=== PATIENT | male | born 1955 | race Caucasian/White ===

== ENCOUNTER → 2016-04-20 | Outpatient (REF) | payer BC ==
[2016-04-20 11:13] LABS: BASO % 0.7 % (0.0-1.0); EOS # 0.2 K/mm3 (0.0-0.50); EOS % 3.4 % (0.0-3.0); LARGE UNSTAINED CELL # 0.2 K/mm3 (0.0-0.4); LARGE UNSTAINED CELL % 3.2 % (0.0-4.0); LYMPH # 1.7 K/mm3 (1.5-4.5); LYMPH % 32.2 % (24.0-44.0); MEAN CORPUSCULAR HEMOGLOBIN 30.9 pg (27.0-33.0); MEAN CORPUSCULAR HGB CONC 34.1 g/dl (32.0-36.5); MEAN CORPUSCULAR VOLUME 90.5 fl (80.0-96.0); MONO # 0.4 K/mm3 (0.0-0.8); NEUTROPHILS # 2.8 K/mm3 (1.8-7.7); NEUTROPHILS % 53.5 % (36.0-66.0); PLATELET COUNT, AUTOMATED 198 k/mm3 (150-450); RED CELL DISTRIBUTION WIDTH 12.4 % (11.5-14.5); WHITE BLOOD COUNT 5.2 K/mm3 (4.0-10.0)
[2016-04-20 11:52] LABS: ALBUMIN/GLOBULIN RATIO 1.18 (1.00-1.93); ALKALINE PHOSPHATASE 58 U/L (45-117); ALT/SGPT 50 U/L (12-78); ANION GAP 10 MEQ/L (8-16); AST/SGOT 25 U/L (15-37); BILIRUBIN,TOTAL 0.5 MG/DL (0.2-1.0); BLOOD UREA NITROGEN 12 MG/DL (7-18); CALCIUM LEVEL 8.7 MG/DL (8.5-10.1); CARBON DIOXIDE LEVEL 30 MEQ/L (21-32); CHLORIDE LEVEL 102 MEQ/L (98-107); CHOLESTEROL LEVEL 158 MG/DL (<200); CREATININE FOR GFR 0.76 MG/DL (0.70-1.30); GLOMERULAR FILTRATION RATE > 60.0 (>56); GLUCOSE, FASTING 109 MG/DL (70-105); SODIUM LEVEL 142 MEQ/L (136-145); TOTAL PROTEIN 7.4 GM/DL (6.4-8.2); TRIGLYCERIDES LEVEL 151 MG/DL (<150)
== END ==
LOC: M SFHCCLAY 08:09
PROVIDERS: ATTEND Family Medicine
DX: D50.9 Iron deficiency anemia, unspecified (principal); I10 Essential (primary) hypertension; E11.9 Type 2 diabetes mellitus without complications; E78.5 Hyperlipidemia, unspecified; Z12.5 Encounter for screening for malignant neoplasm of prostate
CPT/HCPCS: 80053; 80061; 83036; 83540; 85025; G0103

== ENCOUNTER → 2016-08-07 | Outpatient (REF) | payer BC | LOC: M SMT 13:07 | PROVIDERS: ATTEND Urology | DX: Z85.51 Personal history of malignant neoplasm of bladder (principal) ==

== ENCOUNTER → 2016-10-19 | Outpatient (REF) | payer BC ==
[2016-10-19 11:19] LABS: BASO % 0.4 % (0.0-1.0); EOS # 0.2 K/mm3 (0.0-0.50); EOS % 3.1 % (0.0-3.0); LARGE UNSTAINED CELL # 0.2 K/mm3 (0.0-0.4); LARGE UNSTAINED CELL % 2.8 % (0.0-4.0); LYMPH # 1.9 K/mm3 (1.5-4.5); LYMPH % 31.9 % (24.0-44.0); MEAN CORPUSCULAR HEMOGLOBIN 32.1 pg (27.0-33.0); MEAN CORPUSCULAR HGB CONC 34.5 g/dl (32.0-36.5); MEAN CORPUSCULAR VOLUME 93.2 fl (80.0-96.0); MONO # 0.4 K/mm3 (0.0-0.8); MONO % 7.6 % (0.0-5.0); NEUTROPHILS % 54.2 % (36.0-66.0); PLATELET COUNT, AUTOMATED 184 k/mm3 (150-450); RED CELL DISTRIBUTION WIDTH 12.9 % (11.5-14.5); WHITE BLOOD COUNT 5.4 K/mm3 (4.0-10.0)
[2016-10-19 11:22] LABS: ALBUMIN 3.9 GM/DL (3.2-5.2); ALBUMIN/GLOBULIN RATIO 1.34 (1.00-1.93); ALKALINE PHOSPHATASE 59 U/L (45-117); ALT/SGPT 60 U/L (12-78); ANION GAP 8 MEQ/L (8-16); AST/SGOT 27 U/L (15-37); BILIRUBIN,TOTAL 0.5 MG/DL (0.2-1.0); BLOOD UREA NITROGEN 12 MG/DL (7-18); CALCIUM LEVEL 8.6 MG/DL (8.5-10.1); CARBON DIOXIDE LEVEL 29 MEQ/L (21-32); CHLORIDE LEVEL 104 MEQ/L (98-107); CREATININE FOR GFR 0.63 MG/DL (0.70-1.30); GLOMERULAR FILTRATION RATE > 60.0 (>56); GLUCOSE, FASTING 120 MG/DL (70-105); POTASSIUM SERUM 3.9 MEQ/L (3.5-5.1); SODIUM LEVEL 141 MEQ/L (136-145); TOTAL PROTEIN 6.8 GM/DL (6.4-8.2)
== END ==
LOC: M SFHCCLAY 07:43
PROVIDERS: ATTEND Family Medicine
DX: D50.9 Iron deficiency anemia, unspecified (principal); E11.9 Type 2 diabetes mellitus without complications

== ENCOUNTER → 2017-04-22 | Outpatient (REF) | payer BC ==
[2017-04-22 11:59] LABS: BASO % 0.6 % (0.0-1.0); EOS # 0.2 10^3/uL (0.0-0.50); HEMATOCRIT 41.2 % (42.0-52.0); HEMOGLOBIN 13.7 g/dl (14.0-18.0); IMMATURE GRANULOCYTE % 0.4 % (0-0); LYMPH % 27.6 % (24.0-44.0); MEAN CORPUSCULAR HEMOGLOBIN 30.4 pg (27.0-33.0); MEAN CORPUSCULAR HGB CONC 33.3 g/dl (32.0-36.5); MEAN CORPUSCULAR VOLUME 91.6 fl (80.0-96.0); MONO # 0.7 10^3/uL (0.0-0.8); MONO % 9.2 % (0.0-5.0); NEUTROPHILS # 4.2 10^3/uL (1.8-7.7); NEUTROPHILS % 59.2 % (36.0-66.0); PLATELET COUNT, AUTOMATED 222 10^3/uL (150-450); RED CELL DISTRIBUTION WIDTH 12.3 % (11.5-14.5); WHITE BLOOD COUNT 7.1 10^3/uL (4.0-10.0)
[2017-04-22 12:04] LABS: ALBUMIN 3.9 GM/DL (3.2-5.2); ALBUMIN/GLOBULIN RATIO 1.05 (1.00-1.93); ALKALINE PHOSPHATASE 60 U/L (45-117); ALT/SGPT 57 U/L (12-78); ANION GAP 7 MEQ/L (8-16); AST/SGOT 30 U/L (7-37); BILIRUBIN,TOTAL 0.6 MG/DL (0.2-1.0); BLOOD UREA NITROGEN 12 MG/DL (7-18); CALCIUM LEVEL 8.9 MG/DL (8.5-10.1); CARBON DIOXIDE LEVEL 33 MEQ/L (21-32); CHLORIDE LEVEL 102 MEQ/L (98-107); CHOLESTEROL LEVEL 158 MG/DL (<200); CHOLESTEROL RISK RATIO 3.761 (<5); CREATININE FOR GFR 0.79 MG/DL (0.70-1.30); GLOMERULAR FILTRATION RATE > 60.0 (>56); GLUCOSE, FASTING 110 MG/DL (70-100); HDL CHOLESTEROL 42 MG/DL (>40); IRON (FE) 89 UG/DL (65-175); LDL CHOLESTEROL 75.8 MG/DL (<100); NON-HDL-C 116 MG/DL; POTASSIUM SERUM 3.9 MEQ/L (3.5-5.1); SODIUM LEVEL 142 MEQ/L (136-145); TOTAL PROTEIN 7.6 GM/DL (6.4-8.2); TRIGLYCERIDES LEVEL 201 MG/DL (<150)
[2017-04-22 12:06] LABS: PSA SCREENING 0.41 NG/ML (< 4.0)
[2017-04-22 13:00] LABS: ESTIMATED AVERAGE GLUCOSE 137 MG/DL (60-110); HEMOGLOBIN A1c 6.4 %
== END ==
LOC: M SFHCCLAY 07:57
DX: E11.9 Type 2 diabetes mellitus without complications (principal); E78.5 Hyperlipidemia, unspecified; D50.9 Iron deficiency anemia, unspecified

== ENCOUNTER 2017-06-13 06:40 | Day surgery (SDC) | payer BC ==
[2017-06-13] MEDS ORDERED: LIDOCAINE 2% INJ 100 MG/5 ML SDV (FOR ANES.) As Ordered (08:16)
[2017-06-13] MEDS ORDERED: PROPOFOL 200 MG/20 ML VIAL As Ordered (08:16)
== END 2017-06-13 08:56 | disposition home or self-care (01) ==
LOC: M OPP 06:40
DX: Z12.11 Encounter for screening for malignant neoplasm of colon (principal); K57.30 Diverticulosis of large intestine without perforation or abscess without bleeding; Z86.010 Personal history of colon polyps; Z80.0 Family history of malignant neoplasm of digestive organs; E11.9 Type 2 diabetes mellitus without complications; I10 Essential (primary) hypertension; E78.5 Hyperlipidemia, unspecified; D64.9 Anemia, unspecified; G47.33 Obstructive sleep apnea (adult) (pediatric); M12.9 Arthropathy, unspecified; K21.9 Gastro-esophageal reflux disease without esophagitis; Z79.899 Other long term (current) drug therapy; Z87.891 Personal history of nicotine dependence; Z87.442 Personal history of urinary calculi
CPT/HCPCS: 45378

== ENCOUNTER → 2017-10-21 | Outpatient (REF) | payer BC ==
[2017-10-21 11:56] LABS: BASO % 0.5 % (0.0-1.0); EOS # 0.2 10^3/uL (0.0-0.50); EOS % 3.2 % (0.0-3.0); HEMATOCRIT 39.4 % (42.0-52.0); HEMOGLOBIN 13.4 g/dl (13.5-17.5); IMMATURE GRANULOCYTE % 0.2 % (0-3.0); LYMPH # 1.9 10^3/uL (1.5-4.5); LYMPH % 32.4 % (24.0-44.0); MEAN CORPUSCULAR HEMOGLOBIN 30.7 pg (27.0-33.0); MEAN CORPUSCULAR VOLUME 90.4 fl (80.0-96.0); MONO # 0.6 10^3/uL (0.0-0.8); MONO % 9.4 % (0.0-5.0); NEUTROPHILS # 3.2 10^3/uL (1.8-7.7); NEUTROPHILS % 54.3 % (36.0-66.0); PLATELET COUNT, AUTOMATED 196 10^3/uL (150-450); RED BLOOD COUNT 4.36 10^6/uL (4.30-6.10); RED CELL DISTRIBUTION WIDTH 12.3 % (11.5-14.5); WHITE BLOOD COUNT 5.9 10^3/uL (4.0-10.0)
[2017-10-21 12:24] LABS: ALBUMIN 3.7 GM/DL (3.2-5.2); ALBUMIN/GLOBULIN RATIO 1.06 (1.00-1.93); ALKALINE PHOSPHATASE 56 U/L (45-117); ALT/SGPT 61 U/L (12-78); ANION GAP 7 MEQ/L (8-16); AST/SGOT 38 U/L (7-37); BILIRUBIN,TOTAL 0.5 MG/DL (0.2-1.0); BLOOD UREA NITROGEN 9 MG/DL (7-18); CALCIUM LEVEL 8.8 MG/DL (8.8-10.2); CARBON DIOXIDE LEVEL 32 MEQ/L (21-32); CHLORIDE LEVEL 103 MEQ/L (98-107); CREATININE FOR GFR 0.72 MG/DL (0.70-1.30); GLOMERULAR FILTRATION RATE > 60.0 (>49); GLUCOSE, FASTING 109 MG/DL (70-100); IRON (FE) 83 UG/DL (65-175); POTASSIUM SERUM 3.8 MEQ/L (3.5-5.1); SODIUM LEVEL 142 MEQ/L (136-145); TOTAL PROTEIN 7.2 GM/DL (6.4-8.2)
[2017-10-21 14:07] LABS: ESTIMATED AVERAGE GLUCOSE 126 MG/DL (60-110)
== END ==
LOC: M SFHCCLAY 08:05
DX: E11.40 Type 2 diabetes mellitus with diabetic neuropathy, unspecified (principal); D50.9 Iron deficiency anemia, unspecified
CPT/HCPCS: 83540

== ENCOUNTER → 2018-02-24 | Outpatient (REF) | payer BC | LOC: M SMT 17:16 | DX: C67.9 Malignant neoplasm of bladder, unspecified (principal) | CPT/HCPCS: 88108 ==

== ENCOUNTER → 2018-04-24 | Outpatient (REF) | payer BC ==
[~2018-04-24] MED LIST: AMLO5TAB6 PO; BISO10TA6 PO; CO Q100C10 PO; FERR1TAB8 PO; GLUCPOW24 PO; METF10004 PO; MULT1TAB10 PO; OMEP20CA3 PO; SIMV20TA2 PO; VALS320T3 PO
[2018-04-24 11:55] LABS: ALBUMIN 3.9 GM/DL (3.2-5.2); ALT/SGPT 53 U/L (12-78); BILIRUBIN,TOTAL 0.5 MG/DL (0.2-1.0); BLOOD UREA NITROGEN 12 MG/DL (7-18); CALCIUM LEVEL 8.9 MG/DL (8.8-10.2); CARBON DIOXIDE LEVEL 30 MEQ/L (21-32); CHLORIDE LEVEL 101 MEQ/L (98-107); CHOLESTEROL LEVEL 149 MG/DL (<200); CHOLESTEROL RISK RATIO 3.634 (<5); CREATININE FOR GFR 0.67 MG/DL (0.70-1.30); GLOMERULAR FILTRATION RATE > 60.0 (>49); GLUCOSE, FASTING 115 MG/DL (70-100); HDL CHOLESTEROL 41 MG/DL (>40); LDL CHOLESTEROL 76 MG/DL (<100); NON-HDL-C 108 MG/DL; SODIUM LEVEL 139 MEQ/L (136-145); TRIGLYCERIDES LEVEL 158 MG/DL (<150)
[2018-04-24 12:05] LABS: HEMOGLOBIN A1c 6.6 %
[2018-04-24 12:23] LABS: MALB URINE SIEMENS 20.5 MG/L; MAU/CREAT RATIO 16.9 MCG/MG (0.0-30.0)
== END ==
LOC: M SFHCCLAY 07:53
PROVIDERS: ATTEND Family Medicine
DX: E11.40 Type 2 diabetes mellitus with diabetic neuropathy, unspecified (principal)

== ENCOUNTER → 2018-08-29 | Outpatient (REF) | payer BC | LOC: M SMT 17:07 | PROVIDERS: ATTEND Urology | DX: C67.9 Malignant neoplasm of bladder, unspecified (principal) ==

== ENCOUNTER → 2018-10-24 | Outpatient (REF) | payer BC ==
[~2018-10-24] MED LIST changes: -BISO10TA6 PO; +BISO10TA7 PO; -OMEP20CA3 PO; +OMEP20CA4 PO
[2018-10-24 13:14] LABS: BASO % 0.7 % (0.0-1.0); EOS # 0.2 10^3/uL (0.0-0.50); EOS % 4.2 % (0.0-3.0); HEMATOCRIT 39.6 % (42.0-52.0); HEMOGLOBIN 13.1 g/dl (13.5-17.5); LYMPH # 1.8 10^3/uL (1.5-4.5); LYMPH % 32.4 % (24.0-44.0); MEAN CORPUSCULAR HEMOGLOBIN 31.3 pg (27.0-33.0); MEAN CORPUSCULAR HGB CONC 33.1 g/dl (32.0-36.5); MEAN CORPUSCULAR VOLUME 94.5 fl (80.0-96.0); MONO # 0.6 10^3/uL (0.0-0.8); MONO % 10.5 % (0.0-5.0); NEUTROPHILS # 2.9 10^3/uL (1.8-7.7); NEUTROPHILS % 51.8 % (36.0-66.0); PLATELET COUNT, AUTOMATED 181 10^3/uL (150-450); RED BLOOD COUNT 4.19 10^6/uL (4.30-6.10); WHITE BLOOD COUNT 5.5 10^3/uL (4.0-10.0)
[2018-10-24 13:40] LABS: HEMOGLOBIN A1c 6.5 %
[2018-10-24 14:26] LABS: ALBUMIN 3.6 GM/DL (3.2-5.2); ALT/SGPT 66 U/L (12-78); BILIRUBIN,TOTAL 0.3 MG/DL (0.2-1.0); BLOOD UREA NITROGEN 11 MG/DL (7-18); CALCIUM LEVEL 8.8 MG/DL (8.8-10.2); CARBON DIOXIDE LEVEL 32 MEQ/L (21-32); CHLORIDE LEVEL 104 MEQ/L (98-107); GLOMERULAR FILTRATION RATE > 60.0 (>49); GLUCOSE, FASTING 124 MG/DL (70-100); IRON (FE) 64 UG/DL (65-175); POTASSIUM SERUM 4.1 MEQ/L (3.5-5.1); SODIUM LEVEL 141 MEQ/L (136-145); TOTAL PROTEIN 6.9 GM/DL (6.4-8.2)
== END ==
LOC: M SFHCCLAY 07:25
PROVIDERS: ATTEND Family Medicine
DX: E11.40 Type 2 diabetes mellitus with diabetic neuropathy, unspecified (principal); D50.9 Iron deficiency anemia, unspecified

== ENCOUNTER → 2019-03-13 | Outpatient (REF) | payer BC ==
[~2019-03-13] MED LIST changes: +BISO10TA10 PO; -BISO10TA7 PO; +OMEP-172 PO; -OMEP20CA4 PO; -SIMV20TA2 PO; +SIMV20TA22 PO
== END ==
LOC: M SMT 18:57
PROVIDERS: ATTEND Urology
DX: C67.9 Malignant neoplasm of bladder, unspecified (principal)

== ENCOUNTER → 2019-03-13 | Outpatient (REF) | payer BC | LOC: M SMT 17:07 | PROVIDERS: ATTEND Urology | DX: C67.9 Malignant neoplasm of bladder, unspecified (principal) ==

== ENCOUNTER → 2019-04-28 | Outpatient (REF) | payer BC ==
[~2019-04-28] MED LIST changes: -BISO10TA10 PO; +BISO10TA14 PO; -OMEP-172 PO; +OMEP1CAP73 PO
[2019-04-28 13:17] LABS: BASO % 0.5 % (0.0-1.0); EOS # 0.2 10^3/uL (0.0-0.5); EOS % 2.9 % (0.0-3.0); HEMATOCRIT 42.7 % (42.0-52.0); HEMOGLOBIN 14.1 g/dl (13.5-17.5); LYMPH # 2.5 10^3/uL (1.5-5.0); LYMPH % 33.6 % (24.0-44.0); MEAN CORPUSCULAR HEMOGLOBIN 31.3 pg (27.0-33.0); MEAN CORPUSCULAR VOLUME 94.9 fl (80.0-96.0); MONO # 0.7 10^3/uL (0.0-0.8); MONO % 9.4 % (0.0-5.0); NEUTROPHILS % 53.2 % (36.0-66.0); PLATELET COUNT, AUTOMATED 205 10^3/uL (150-450); WHITE BLOOD COUNT 7.5 10^3/uL (4.0-10.0)
[2019-04-28 13:31] LABS: ALBUMIN 3.9 GM/DL (3.2-5.2); ALT/SGPT 52 U/L (12-78); BILIRUBIN,TOTAL 0.4 MG/DL (0.2-1.0); BLOOD UREA NITROGEN 10 MG/DL (7-18); CALCIUM LEVEL 9.3 MG/DL (8.8-10.2); CARBON DIOXIDE LEVEL 33 MEQ/L (21-32); CHLORIDE LEVEL 101 MEQ/L (98-107); CHOLESTEROL LEVEL 172 MG/DL (<200); GLOMERULAR FILTRATION RATE > 60.0 (>49); GLUCOSE, FASTING 113 MG/DL (70-100); HDL CHOLESTEROL 40 MG/DL (>40); IRON (FE) 84 UG/DL (65-175); LDL CHOLESTEROL 82 MG/DL (<100); NON-HDL-C 132 MG/DL; POTASSIUM SERUM 4.3 MEQ/L (3.5-5.1); SODIUM LEVEL 139 MEQ/L (136-145); TOTAL PROTEIN 7.2 GM/DL (6.4-8.2); TRIGLYCERIDES LEVEL 250 MG/DL (<150)
[2019-04-28 13:49] LABS: HEMOGLOBIN A1c 6.3 %
== END ==
LOC: M SFHCCLAY 07:46
PROVIDERS: ATTEND Family Medicine
DX: E11.40 Type 2 diabetes mellitus with diabetic neuropathy, unspecified (principal); D50.9 Iron deficiency anemia, unspecified

== ENCOUNTER → 2019-09-14 | Outpatient (REF) | payer BC ==
[~2019-09-14] MED LIST changes: +AMLO1TAB24 PO; -AMLO5TAB6 PO
== END ==
LOC: M SMT 17:01
PROVIDERS: ATTEND Urology
DX: C67.9 Malignant neoplasm of bladder, unspecified (principal)

== ENCOUNTER → 2020-01-08 | Outpatient (REF) | payer BC ==
[2020-01-08 11:46] LABS: HEMOGLOBIN A1c 6.3 %
[2020-01-08 12:10] LABS: ALBUMIN 3.7 GM/DL (3.2-5.2); ALT/SGPT 57 U/L (12-78); BILIRUBIN,TOTAL 0.4 MG/DL (0.2-1.0); BLOOD UREA NITROGEN 11 MG/DL (7-18); CALCIUM LEVEL 9.5 MG/DL (8.8-10.2); CARBON DIOXIDE LEVEL 33 MEQ/L (21-32); CHLORIDE LEVEL 102 MEQ/L (98-107); CREATININE FOR GFR 0.85 MG/DL (0.70-1.30); GLOMERULAR FILTRATION RATE > 60.0 (>49); GLUCOSE, FASTING 148 MG/DL (70-100); POTASSIUM SERUM 4.3 MEQ/L (3.5-5.1); SODIUM LEVEL 139 MEQ/L (136-145); TOTAL PROTEIN 7.4 GM/DL (6.4-8.2)
== END ==
LOC: M SFHCCLAY 07:59
PROVIDERS: ATTEND Family Medicine
DX: E11.40 Type 2 diabetes mellitus with diabetic neuropathy, unspecified (principal); Z12.5 Encounter for screening for malignant neoplasm of prostate; Z79.84 Long term (current) use of oral hypoglycemic drugs
CPT/HCPCS: 80053; 83036; G0103

== ENCOUNTER → 2020-04-18 | Outpatient (REF) | payer BC | LOC: M SMT 17:09 | PROVIDERS: ATTEND Urology | DX: C67.9 Malignant neoplasm of bladder, unspecified (principal) ==

== ENCOUNTER → 2020-07-07 | Outpatient (REF) | payer BC ==
[2020-07-07 11:38] LABS: BASO % 0.6 % (0.0-1.0); EOS # 0.2 10^3/uL (0.0-0.5); EOS % 3.3 % (0.0-3.0); HEMATOCRIT 39.5 % (42.0-52.0); LYMPH # 2.3 10^3/uL (1.5-5.0); LYMPH % 32.8 % (24.0-44.0); MEAN CORPUSCULAR HEMOGLOBIN 30.8 pg (27.0-33.0); MEAN CORPUSCULAR HGB CONC 32.9 g/dl (32.0-36.5); MEAN CORPUSCULAR VOLUME 93.6 fl (80.0-96.0); MONO # 0.8 10^3/uL (0.0-0.8); MONO % 10.9 % (2.0-8.0); NEUTROPHILS # 3.6 10^3/uL (1.5-8.5); PLATELET COUNT, AUTOMATED 194 10^3/uL (150-450); RED BLOOD COUNT 4.22 10^6/uL (4.30-6.10)
[2020-07-07 12:02] LABS: HEMOGLOBIN A1c 6.6 %
[2020-07-07 12:15] LABS: ALBUMIN 3.8 GM/DL (3.2-5.2); ALT/SGPT 61 U/L (12-78); BILIRUBIN,TOTAL 0.4 MG/DL (0.2-1.0); BLOOD UREA NITROGEN 17 MG/DL (7-18); CALCIUM LEVEL 9.3 MG/DL (8.8-10.2); CARBON DIOXIDE LEVEL 34 MEQ/L (21-32); CHLORIDE LEVEL 103 MEQ/L (98-107); CHOLESTEROL LEVEL 170 MG/DL (<200); CHOLESTEROL RISK RATIO 4.358 (<5); CREATININE FOR GFR 0.83 MG/DL (0.70-1.30); GLOMERULAR FILTRATION RATE > 60.0 (>49); GLUCOSE, FASTING 154 MG/DL (70-100); HDL CHOLESTEROL 39 MG/DL (>40); IRON (FE) 82 UG/DL (65-175); LDL CHOLESTEROL 73 MG/DL (<100); NON-HDL-C 131 MG/DL; POTASSIUM SERUM 4.4 MEQ/L (3.5-5.1); SODIUM LEVEL 141 MEQ/L (136-145); TOTAL PROTEIN 7.1 GM/DL (6.4-8.2); TRIGLYCERIDES LEVEL 288 MG/DL (<150)
== END ==
LOC: M SFHCCLAY 08:40
PROVIDERS: ATTEND Family Medicine
DX: E11.40 Type 2 diabetes mellitus with diabetic neuropathy, unspecified (principal); E78.5 Hyperlipidemia, unspecified; D50.9 Iron deficiency anemia, unspecified

== ENCOUNTER → 2020-11-25 | Outpatient (CLI) | payer BC ==
[~2020-11-25] MED LIST changes: +APPLTAB2 PO; +CINN500C15 PO; +D31000TA2 PO; +ECHI1CAP2 PO; +FLOM0.4C39 PO; +GARL500C2 PO; +GLUC1CAP10 PO; +TRAM50TA2 PO; +VITA-243 PO; +ZINC1TAB2 PO
--- NOTE | 2020-11-25 15:39 | REP ---
INDICATION: CALCULUS OF KIDNEY- LABS AND EKG FIRST COMPARISON: None. TECHNIQUE: PA and lateral. FINDINGS: The mediastinum and cardiac silhouette are normal. The lung shook are clear and without acute consolidation, effusion, or pneumothorax. The skeletal structures are intact and normal. IMPRESSION: No acute cardiopulmonary process. <Electronically signed by Arnulfo Peraza > 11/25/20 [id number]
[2020-11-25 16:03] LABS: HEMATOCRIT 40.4 % (42.0-52.0); HEMOGLOBIN 13.5 g/dl (13.5-17.5); MEAN CORPUSCULAR HGB CONC 33.4 g/dl (32.0-36.5); MEAN CORPUSCULAR VOLUME 92.9 fl (80.0-96.0); PLATELET COUNT, AUTOMATED 197 10^3/uL (150-450); RED BLOOD COUNT 4.35 10^6/uL (4.30-6.10); WHITE BLOOD COUNT 10.1 10^3/uL (4.0-10.0)
[2020-11-25 16:41] LABS: BLOOD UREA NITROGEN 13 MG/DL (7-18); CALCIUM LEVEL 9.6 MG/DL (8.8-10.2); CARBON DIOXIDE LEVEL 33 MEQ/L (21-32); CHLORIDE LEVEL 100 MEQ/L (98-107); CREATININE FOR GFR 1.03 MG/DL (0.70-1.30); GLOMERULAR FILTRATION RATE > 60.0 (>49); GLUCOSE, FASTING 142 MG/DL (70-100); POTASSIUM SERUM 3.8 MEQ/L (3.5-5.1); SODIUM LEVEL 138 MEQ/L (136-145)
--- NOTE | 2020-11-25 19:27 | ECGEPIP ---
[facility] Test Date: 2020-11-25 Pat Name: NANCY PAEZ Department: Room: - Gender: Male Fast Food Manager: OSITO : 1955 Requested By: JAIME Lopez Order Number: [id number] Reading MD: Rafael Rosado Measurements Intervals [place] Rate: 78 P: 26 [place]: 126 QRS: 66 QRSD: 88 T: 69 QT: 374 QTc: 426 Interpretive Statements Normal sinus rhythm Nonspecific T wave abnormality Baseline artifact No significant change when compared to prior tracing of Electronically Signed on 11-25-2020 19:27:12 EDT by Rafael Rosado
== END ==
LOC: M LAB 14:59
PROVIDERS: ATTEND Urology
DX: Z01.818 Encounter for other preprocedural examination (principal); N20.0 Calculus of kidney

== ENCOUNTER → 2020-11-25 | Outpatient (REF) | payer BC | LOC: M SMT 13:11 | PROVIDERS: ATTEND Urology | DX: N20.0 Calculus of kidney (principal) ==

== ENCOUNTER → 2020-11-28 | Outpatient (CLI) | payer BC | LOC: M LABSMTC 09:25 | PROVIDERS: ATTEND Anesthesiology | DX: Z01.812 Encounter for preprocedural laboratory examination (principal) ==

== ENCOUNTER → 2021-01-23 | Outpatient (REF) | payer BC ==
[2021-01-24 11:44] LABS: BASO % 0.4 % (0.0-1.0); EOS # 0.2 10^3/uL (0.0-0.5); EOS % 2.7 % (0.0-3.0); HEMATOCRIT 40.6 % (42.0-52.0); HEMOGLOBIN 13.5 g/dl (13.5-17.5); LYMPH # 2.5 10^3/uL (1.5-5.0); LYMPH % 31.5 % (24.0-44.0); MEAN CORPUSCULAR HEMOGLOBIN 31.4 pg (27.0-33.0); MEAN CORPUSCULAR HGB CONC 33.3 g/dl (32.0-36.5); MEAN CORPUSCULAR VOLUME 94.4 fl (80.0-96.0); MONO # 0.8 10^3/uL (0.0-0.8); MONO % 9.4 % (2.0-8.0); NEUTROPHILS # 4.5 10^3/uL (1.5-8.5); NEUTROPHILS % 55.6 % (36.0-66.0); PLATELET COUNT, AUTOMATED 235 10^3/uL (150-450); WHITE BLOOD COUNT 8.1 10^3/uL (4.0-10.0)
[2021-01-24 13:00] LABS: ALBUMIN 4.2 GM/DL (3.2-5.2); ALT/SGPT 56 U/L (12-78); BILIRUBIN,TOTAL 0.4 MG/DL (0.2-1.0); BLOOD UREA NITROGEN 15 MG/DL (7-18); CALCIUM LEVEL 9.5 MG/DL (8.8-10.2); CARBON DIOXIDE LEVEL 34 MEQ/L (21-32); CHLORIDE LEVEL 100 MEQ/L (98-107); CREATININE FOR GFR 0.96 MG/DL (0.70-1.30); GLOMERULAR FILTRATION RATE > 60.0 (>49); GLUCOSE, FASTING 109 MG/DL (70-100); POTASSIUM SERUM 3.7 MEQ/L (3.5-5.1); SODIUM LEVEL 139 MEQ/L (136-145); TOTAL PROTEIN 7.7 GM/DL (6.4-8.2)
== END ==
LOC: M SFHCCLAY 14:02
PROVIDERS: ATTEND Urology
DX: Z01.818 Encounter for other preprocedural examination (principal)

== ENCOUNTER → 2021-01-23 | Outpatient (CLI) | payer BC | LOC: M LABSMTC 10:08 | PROVIDERS: ATTEND Anesthesiology | DX: Z01.818 Encounter for other preprocedural examination (principal); Z11.52 Encounter for screening for COVID-19 ==

== ENCOUNTER 2021-01-27 11:00 | Day surgery (SDC) | payer BC ==
[~2021-01-27] VITALS: Ht 180.3 cm; Wt 157.4 kg
[~2021-01-27 11:00] MED LIST changes: +CONRAY-60 60% 50ML VIAL (Q9961) As Ordered ONE; +EMLA CREAM 5GM TUBE (LIDOCAINE/PRILOCAINE) TOP PRN; +LIDOCAINE 1% MDV 20ML VIAL SQ PRN; +LR 1,000 ML IV ONE; +ceFAZolin SOD 2 GM in IV 1 EA IV ONE
--- OUTSIDE RECORDS SUMMARY | 2021-01-27 11:04 | CCD ---
Author Author [facility] Organization [facility] Address Unknown Phone Unavailable Care Team Providers Care Lining Brusher Name Role Phone Diaz Jann Unavailable PROBLEMS Type Condition ICD9-CM Code [id number] Code Onset Dates Condition S tatus W/U Status Risk SNOMED Code Notes Problem Hyperlipidemia E78.5 Active confirmed 88121 004 Problem Personal history of malignant neoplasm of bladder Z85.51 Active confirmed 769812292 Problem Diabetic neuropathy E11.40 Active confirmed 750130297 Problem Diabetes E11.9 Active confirmed 68566868 Problem Iron deficiency anemia D50.9 Active confirmed 34474497 Problem Osteoarthritis M19.90 Active confirmed 94761 5006 Problem Bladder cancer C67.9 Active confirmed 38003 6009 Problem UTI (urinary tract infection) N39.0 Active confirm ed 02225821 Problem Hypertension I10 Active confirmed 8551043 3 Problem Kidney stones N20.0 Active confirmed 635197 07 Problem GERD (gastroesophageal reflux disease) K21.9 A ctive confirmed 607758416 Problem History of colon polyps Z86.010 Active confirmed 316071462 Problem Screening for prostate cancer Z12.5 Active confirm ed 981483263 Problem Preop testing Z01.818 Active confirmed 67660 9001 Problem Kidney stone N20.0 Active confirmed 5201735 7 ALLERGIES No Known Allergies ENCOUNTERS from 1955 to 2021-01-10 Encounter Location Date Provider Diagnosis [facility] [phone] [place] [address] 08 Dec, 2020 Jann Perales Diabetic neuropathy E11.40 ; Hypertensio n I10 ; Bladder cancer C67.9 ; Hyperlipidemia E78.5 ; Iron deficiency anemia D50.9 ; Kidney stones N20.0 ; Actinic keratoses L57.0 and Encounter for immunization Z23 IMMUNIZATIONS Vaccine Route Administration Date Status Pneumovax Given Elsewhere Unknown Dec 21, 2019 Admini stered Influenza Pharmacy Given Unknown Dec 21, 2019 Adminis tered Influenza Pharmacy Given Unknown Jan 19, 2019 Adminis tered Influenza Pharmacy Given Unknown Dec 16, 2017 Adminis tered Influenza 18 yrs & older Flublok IM Intramuscular Jan 06, 2021 Administered Influenza 6mo & up Fluzone Unknown Dec 27, 2016 Admin istered Influenza 6mo & up Fluzone Unknown Feb 14, 2015 Refus ed SOCIAL HISTORY Sex Assigned At : Social History Observation Description Sex Assigned At Unknown Audit Question Answer Notes Total Score: 0 Interpretation: Alcohol Education Drug and Alcohol Question Answer Notes Total Score: 0 Interpretation: No problems reported BMI Care Goal Follow-Up Question Answer Notes Above Normal BMI Follow-Up Dietary management educatio n, guidance, and counseling REASON FOR REFERRAL No Information VITAL SIGNS Weight 348 lbs Dec, Weight-kg 157.85 kg Dec, Height 71 in Dec, BMI 48.53 kg/m2 Dec, Heart Rate 72 /min Dec, Respiratory Rate 18 /min Dec, Temperature 97.3 degrees Fahrenheit Dec, Oximetry 97ra Dec, Blood pressure systolic 155 mm Hg Dec, Blood pressure diastolic 79 mm Hg Dec, MEDICATIONS Medication SIG (Take, Route, Frequency, Duration) Notes Start Da te End Date Status Apple Cider Vinegar 500 MG as directed Orally Active amLODIPine Besylate 5 MG 1 tablet Orally Once a day for 90 days Active Vitamin D3 50 MCG (2000 UT) 1 tablet Orally Once a day for 30 day(s) Active Simvastatin 20 MG 1 tablet in the evening Orally Once a day for 90 Active Valsartan-hydroCHLOROthiazide 320-25 MG TAKE ONE TABLE T BY MOUTH EVERY DAY for 90 Active Lidocaine HCl Jelly MCC 2 % 1 application to affected area as needed Intravesically prior to cystoscopy in office Jan, Active metFORMIN HCl 1000 MG TAKE 1 TABLET BY MOUTH TWO TIMES A DAY WITH MEALS for 90 Active CoQ-10 100 MG 1 capsule with a meal Orally twice daily Active Zinc 50 MG 1 tablet Orally Once a day for 30 day(s) Active Echinacea 650 MG as directed Orally Active Omeprazole 20 MG 1 cap orally Daily for 90 days Active Garlic 100 MG as directed Orally Act nba Vitamin C 500 MG as directed Orally Active Ferrous Sulfate 325 (65 Fe) MG 1 tablet Orally twice daily for 90 day s Active Iron 325 (65 Fe) MG 1 tablet Orally Once a day for 30 day(s) Active Cinnamon 500 MG as directed Orally A ctive Centrum Silver as directed Orally once a day Active Chondroitin Sulfate 1200 mg 1 tablet Orally twice a day Active Bisoprolol Fumarate 10 MG 1 tablet Orally twice a day for 90 Active CoQ10 100 MG as directed Orally Acti ve PROCEDURES from 1955 to 2021-01-10 Procedure Date Ordered Result Body Site Imm: Flublok Quadrivalent 18 years & older 0.5mL IM Influenza 20-01-08 N/A RESULTS No Results REASON FOR VISIT Patient did not complete his surgery with Dr. Prajapati, his pre op Covid test w as positive and he did get ill. Patient has surgery planned for 01/27 MEDICAL (GENERAL) HISTORY Type Description Date Medical History DM with neuropathy of feet Medical History HTN Medical History Acid reflux Medical History Hx kidney stones Medical History Hyperlipidemia Medical History L1 Burst Compression Fracture Medical History Arthritis Medical History Iron deficiency anemia Medical History MABEL- on bipap Medical History Bladder tumor- follows with [facility] Urology Surgical History lithotripsy x 3 2012, 2010, Surgical History colonoscopy x2- hx polyps 2012, 2003, Surgical History T & A 1963 Surgical History EWSL 01/27/15 Surgical History CYSTOSCOPY 08/29/2018 Surgical History CYSTOSCOPY 03/13/2019 Surgical History Colonoscopy- normal- repeat 5 06/18 Surgical History CYSTOSCOPY 09/14/2019 Hospitalization History compression fx L1 1997 Goals Section No Information Health Concerns No Information MEDICAL EQUIPMENT No Information MENTAL STATUS No Information FUNCTIONAL STATUS No Information ASSESSMENTS Encounter Date Diagnosis Assessment Notes Treatment Notes Treatm ent Clinical Notes Dec, Hypertension (ICD-10 - I10) Generally well controlled. No changes for now. Dec, Diabetic neuropathy (ICD-10 - E11.40) Labs were okay at last check. Will plan to update when we are sure of surgery date and will repeat labs then for clearance. Pt agreeable. Dec, Bladder cancer (ICD-10 - C67.9) Cont f/u with Dr Prajapati. Dec, Hyperlipidemia (ICD-10 - E78.5) Very well controlled, monitor annually in Spring. Dec, Iron deficiency anemia (ICD-10 - D50.9) Labs okay in April, monitor annually. Dec, Kidney stones (ICD-10 - N20.0) He will f/u with urology as scheduled. Will update labs and clearance when date is confirmed. Pt is agreeable. Dec, Actinic keratoses (ICD-10 - L57.0) Cryo done, repeat if necessary. Dec, Encounter for immunization (ICD-10 - Z23) PLAN OF TREATMENT Treatment Notes Assessment Notes Clinical Notes Hypertension Generally well contr olled. No changes for now. Diabetic neuropathy Labs were okay at [facility] check. Will plan to update when we are sure of surgery date and will repeat labs then for clearance. Pt agreeable. Bladder cancer Cont f/u with Dr Sabrina lowe. Hyperlipidemia Very well controlled , monitor annually in Spring. Iron deficiency anemia Labs okay in , monitor annually. Kidney stones He will f/u with uro logy as scheduled. Will update labs and clearance when date is confirmed. Pt is agreeable. Actinic keratoses Cryo done, repeat if necessary. Next Appt Details 6 Months Reason:30 minutes Provider Name:Arthur Prajapati, 11:00:00 AM, [address], , [place], [address], Provider Name:Jann Perales, 08:00:00 AM, [address] , , [place], [address], Follow Up:6 Glquao80 minutes Insurance Providers Payer Name Payer Address Payer Phone Insured Name Patient Relati onship to Insured Coverage Start Date Coverage End Date JEANNE V[place]QUEZ [place] [address] [address] [facility] [phone] NANCY PAEZ
--- OUTSIDE RECORDS SUMMARY | 2021-01-27 11:04 | CCD ---
Author Author [facility] Organization [facility] Address Unknown Phone Unavailable Care Team Providers Care Meat Counter Clerk Name Role Phone Diaz Jann Unavailable PROBLEMS Type Condition ICD9-CM Code SQT90-PM Code Onset Dates Condition S tatus W/U Status Risk SNOMED Code Notes Problem Hyperlipidemia E78.5 Active confirmed 36288 004 Problem Personal history of malignant neoplasm of bladder Z85.51 Active confirmed 487143101 Problem Diabetic neuropathy E11.40 Active confirmed 498893976 Problem Diabetes E11.9 Active confirmed 83413713 Problem Iron deficiency anemia D50.9 Active confirmed 62854101 Problem Osteoarthritis M19.90 Active confirmed 73001 5006 Problem Bladder cancer C67.9 Active confirmed 67428 6009 Problem UTI (urinary tract infection) N39.0 Active confirm ed 11085730 Problem Hypertension I10 Active confirmed 0531591 3 Problem Kidney stones N20.0 Active confirmed 779094 07 Problem GERD (gastroesophageal reflux disease) K21.9 A ctive confirmed 423457109 Problem History of colon polyps Z86.010 Active confirmed 695012613 Problem Screening for prostate cancer Z12.5 Active confirm ed 222995506 Problem Preop testing Z01.818 Active confirmed 47300 9001 Problem Kidney stone N20.0 Active confirmed 4595960 7 ALLERGIES No Known Allergies ENCOUNTERS from 1955 to 2020-11-29 Encounter Location Date Provider Diagnosis [facility] [place] [address] [phone] [place] [address] Oct, Jann Perales Kidney stones N20.0 ; Pre-op evaluation Z01.818 ; Diabetic neuropathy E11.40 ; Hypertension I10 ; Bladder cancer C67.9 ; Hyperlipidemia E78.5 and Iron deficiency anemia D50.9 IMMUNIZATIONS Vaccine Route Administration Date Status Pneumovax Given Elsewhere Unknown Dec 21, 2019 Admini stered Influenza Pharmacy Given Unknown Dec 21, 2019 Adminis tered Influenza Pharmacy Given Unknown Jan 19, 2019 Adminis tered Influenza Pharmacy Given Unknown Dec 16, 2017 Adminis tered Influenza 6mo & up Fluzone Unknown Dec [...] FOR REFERRAL No Information VITAL SIGNS Weight 348.8 lbs Oct, Weight-kg 158.21 kg Oct, Height 71 in Oct, BMI 48.64 kg/m2 Oct, Heart Rate 72 /min Oct, Respiratory Rate 18 /min Oct, Temperature 95.8 degrees Fahrenheit Oct, Oximetry 96ra Oct, Blood pressure systolic 148 mm Hg Oct, Blood pressure diastolic 75 mm Hg Oct, MEDICATIONS Medication SIG (Take, Route, Frequency, Duration) Notes Start Da te End Date Status Simvastatin 20 MG 1 tablet in the evening Orally Once a day for 90 Active Iron 325 (65 Fe) MG 1 tablet Orally Once a day for 30 day(s) Active CoQ-10 100 MG 1 capsule with a meal Orally twice daily Active Omeprazole 20 MG 1 cap orally Daily for 90 days Active Vitamin D3 50 MCG (2000 UT) 1 tablet Orally Once a day for 30 day(s) Active Garlic 100 MG as directed Orally Act nba Chondroitin Sulfate 1200 mg 1 tablet Orally twice a day Active Zinc 50 MG 1 tablet Orally Once a day for 30 day(s) Active Centrum Silver as directed Orally once a day Active Tamsulosin HCl 0.4 MG 1 capsule Orally Once a day for 30 day(s) Active traMADol HCl 50 MG 1 tablet as needed Orally Once a day Active Cinnamon 500 MG as directed Orally A ctive metFORMIN HCl 1000 MG TAKE 1 TABLET BY MOUTH TWO TIMES A DAY WITH MEALS for 90 Active Apple Cider Vinegar 500 MG as directed Orally Active CoQ10 100 MG as directed Orally Acti ve Vitamin C 500 MG as directed Orally Active Ketorolac Tromethamine 10 MG 1 tablet with food or mil k as needed Orally every 6 hrs for 5 day(s) Active Ferrous Sulfate 325 (65 Fe) MG 1 tablet Orally twice daily for 90 day s Active Lidocaine HCl Jelly CUSTODIAL 2 % 1 application to affected area as needed Intravesically prior to cystoscopy in office Jan, Active Bisoprolol Fumarate 10 MG 1 tablet Orally twice a day for 90 Active Echinacea 650 MG as directed Orally Active Valsartan-hydroCHLOROthiazide 320-25 MG TAKE ONE TABLE T BY MOUTH EVERY DAY for 90 Active amLODIPine Besylate 5 MG 1 tablet Orally Once a day for 90 days Active PROCEDURES No Information RESULTS No Results REASON FOR VISIT Patient planning for ureteroscopy and lithotripsy on 12/[address] Prajapati. MEDICAL (GENERAL) HISTORY Type Description Date Medical History DM with neuropathy of feet Medical History HTN Medical History Acid reflux Medical History Hx kidney stones Medical History Hyperlipidemia Medical History L1 Burst Compression Fracture Medical History Arthritis Medical History Iron deficiency anemia Medical History MABEL- on bipap Medical History Bladder tumor- follows with [facility] Urology Surgical History lithotripsy x 3 2012, 2010, Surgical History colonoscopy x2- hx polyps 2003, Surgical History T & A 1963 Surgical History EWSL 01/27/15 Surgical History CYSTOSCOPY 08/29/2018 Surgical History CYSTOSCOPY 03/13/2019 Surgical History Colonoscopy- normal- repeat 5 years 06/18 18 Surgical History CYSTOSCOPY 09/14/2019 Hospitalization History compression fx L1 1997 Goals Section No Information Health Concerns No Information MEDICAL EQUIPMENT No Information MENTAL STATUS No Information FUNCTIONAL STATUS No Information ASSESSMENTS Encounter Date Diagnosis Assessment Notes Treatment Notes Treatm ent Clinical Notes Oct, Kidney stones (ICD-10 - N20.0) He will f/u with urology as scheduled. He has a stone analysis pending so might be able to help prevent future stones. Pt is agreeable. Oct, Pre-op evaluation (ICD-10 - Z01.818) Pre-op labs, CXR and EKG were all okay, he may proceed with surgery with Dr Prajapati as scheduled. Pt is aware and agreeable to plan. Oct, Diabetic neuropathy (ICD-10 - E11.40) Labs were okay at last check. Will plan to f/u as scheduled. Pt agreeable. Oct, Hypertension (ICD-10 - I10) Generally well controlled. No changes for now. Oct, Bladder cancer (ICD-10 - C67.9) Cont f/u with Dr Prajapati. Oct, Hyperlipidemia (ICD-10 - E78.5) Very well controlled, monitor annually in Spring. Oct, Iron deficiency anemia (ICD-10 - D50.9) Labs okay in April, monitor annually. PLAN OF TREATMENT Treatment Notes Assessment Notes Clinical Notes Kidney stones He will f/u with uro logy as scheduled. He has a stone analysis pending so might be able to help prevent future stones. Pt is agreeable. Pre-op evaluation Pre-op labs, CXR and EKG were all okay, he may proceed with surgery with Dr Prajapati as scheduled. Pt is aware and agreeable to plan. Diabetic neuropathy Labs were okay at st check. Will plan to f/u as scheduled. Pt agreeable. Hypertension Generally well contr olled. No changes for now. Bladder cancer Cont f/u with Dr Sabrina lowe. Hyperlipidemia Very well controlled , monitor annually in Spring. Iron deficiency anemia Labs okay in , monitor annually. Next Appt Details as scheduled Reason: Provider Name:Jann Perales, 08:30:00 AM, [address] , , [place], [address], Provider Name:Arthur Prajapati, 11:30:00 AM, [address], , [place], [address], Provider Name:Arthur Prajapati, 11:00:00 AM, [address], , [place], [address], Insurance Providers Payer Name Payer Address Payer Phone Insured Name Patient Relati onship to Insured Coverage Start Date Coverage End Date [facility] [address] [facility] [id number] NANCY PAEZ self
--- OUTSIDE RECORDS SUMMARY | 2021-01-27 11:05 | CCD ---
Author Author [facility] Organization [facility] Address Unknown Phone Unavailable Care Team Providers Care Environmental Attorney Name Role Phone Arthur Prajapati Unavailable PROBLEMS Type Condition ICD9-CM Code FJK88-EW Code Onset Dates Condition S tatus W/U Status Risk SNOMED Code Notes Problem Hyperlipidemia E78.5 Active confirmed 27894 004 Problem Diabetes E11.9 Active confirmed 50725212 Problem Diabetic neuropathy E11.40 Active confirmed 998290775 Problem History of colon polyps Z86.010 Active confirmed 338974232 Problem Osteoarthritis M19.90 Active confirmed 38002 5006 Problem Screening for prostate cancer Z12.5 Active confirm ed 395562499 Problem Personal history of malignant neoplasm of bladder Z85.51 Active confirmed 419812561 Problem GERD (gastroesophageal reflux disease) K21.9 A ctive confirmed 203756822 Problem Hypertension I10 Active confirmed 2454040 3 Problem Iron deficiency anemia D50.9 Active confirmed 69264472 Problem Bladder cancer C67.9 Active confirmed 19023 6009 ALLERGIES No Known Allergies ENCOUNTERS from 1955 to 2020-11-16 Encounter Location Date Provider Diagnosis [facility] [address] [phone] [place] [address] Oct, Arthur Prajapati IMMUNIZATIONS Vaccine Route Administration Date Status Pneumovax [...] REASON FOR REFERRAL No Information VITAL SIGNS No information MEDICATIONS Medication SIG (Take, Route, Frequency, Duration) Notes Start Da te End Date Status Bisoprolol Fumarate 10 MG 1 tablet Orally twice a day for 90 Active metFORMIN HCl 1000 MG TAKE 1 TABLET BY MOUTH TWO TIMES A DAY WITH MEALS for 90 Active Lidocaine HCl Jelly LONG-TERM 2 % 1 application to affected area as needed Intravesically prior to cystoscopy in office Jan, Active CoQ-10 100 MG 1 capsule with a meal Orally twice daily Active Ferrous Sulfate 325 (65 Fe) MG 1 tablet Orally twice daily for 90 day s Active amLODIPine Besylate 5 MG 1 tablet Orally Once a day for 90 days Active Chondroitin Sulfate 1200 mg 1 tablet Orally twice a day Active Simvastatin 20 MG 1 tablet in the evening Orally Once a day for 90 Active Omeprazole 20 MG 1 cap orally Daily for 90 days Active Bactrim DS 800-160 MG 1 tablet for your cystoscopy today Orally as directed Jan, Not-Taking Valsartan-hydroCHLOROthiazide 320-25 MG TAKE ONE TABLE T BY MOUTH EVERY DAY for 90 Active Centrum Silver as directed Orally once a day Active PROCEDURES No Information RESULTS No Results REASON FOR VISIT back pain MEDICAL (GENERAL) HISTORY Type Description Date Medical History DM with neuropathy of feet Medical History HTN Medical History Acid reflux Medical History Hx kidney stones Medical History Hyperlipidemia Medical History L1 Burst Compression Fracture Medical History Arthritis Medical History Iron deficiency anemia Medical History MABEL- on bipap Medical History Bladder tumor- follows with [facility] Urology Surgical History lithotripsy x 3 2012, [...] No Information FUNCTIONAL STATUS No Information ASSESSMENTS No Information PLAN OF TREATMENT Medication Medication Name Sig Start Date Stop Date amLODIPine Besylate 5 MG 1 tablet Orally Once a day for 90 days Valsartan-hydroCHLOROthiazide 320-25 MG TAKE ONE TABLE T BY MOUTH EVERY DAY for 90 metFORMIN HCl 1000 MG TAKE 1 TABLET BY MOUTH TWO TIMES A DAY WITH MEALS for 90 Ferrous Sulfate 325 (65 Fe) MG 1 tablet Orally twice daily for 9 0 days Omeprazole 20 MG 1 cap orally Daily for 90 days Next Appt Details Provider Name:Arthur Prajapati, 10:45:00 AM, [address], , [place], [address], Provider Name:Jann Perales, 08:30:00 AM, [address] , , [place], [address], Provider Name:Arthur Prajapati, 11:00:00 AM, [address], , [place], [address], Insurance Providers Payer Name Payer Address Payer Phone Insured Name Patient Relati onship to Insured Coverage Start Date Coverage End Date JEANNE V[place]QUEZ [place] [id number] [address] [facility] [address] [phone] NANCY PAEZ
--- OUTSIDE RECORDS SUMMARY | 2021-01-27 11:05 | CCD ---
Author Author [facility] Organization [facility] Address Unknown Phone Unavailable Care Team Providers Care [employer] Name Role Phone Arthur Prajapati Unavailable PROBLEMS Type Condition ICD9-CM Code [id number] Code Onset Dates Condition S tatus W/U Status Risk SNOMED Code Notes Problem Personal history of malignant neoplasm of bladder Z85.51 Active confirmed 075992875 Problem Hyperlipidemia E78.5 Active confirmed 53087 004 Problem Osteoarthritis M19.90 Active confirmed 05415 5006 Problem GERD (gastroesophageal reflux disease) K21.9 A ctive confirmed 339837285 Problem Hypertension I10 Active confirmed 2708360 3 Problem Iron deficiency anemia D50.9 Active confirmed 51097639 Problem Kidney stone N20.0 Active confirmed 0788490 7 Problem Diabetic neuropathy E11.40 Active confirmed 796727840 Problem UTI (urinary tract infection) N39.0 Active confirm ed 35942292 Problem Diabetes E11.9 Active confirmed 02666683 Problem Bladder cancer C67.9 Active confirmed 05516 6009 Problem History of colon polyps Z86.010 Active confirmed 924529052 Problem Screening for prostate cancer Z12.5 Active confirm ed 815576757 Problem Preop testing Z01.818 Active confirmed 33228 9001 ALLERGIES No Known Allergies ENCOUNTERS from 1955 to 2020-11-29 Encounter Location Date Provider Diagnosis [facility] [phone] [place] [address] Oct, Arthur Prajapati Kidney stone N20.0 ; Preop testing Z01.8 18 and UTI (urinary tract infection) N39.0 IMMUNIZATIONS Vaccine Route Administration Date Status Pneumovax [...] Notes Start Da te End Date Status Zinc 50 MG 1 tablet Orally Once a day for 30 day(s) Active metFORMIN HCl 1000 MG TAKE 1 TABLET BY MOUTH TWO TIMES A DAY WITH MEALS for 90 Active Bisoprolol Fumarate 10 MG 1 tablet Orally twice a day for 90 Active Bactrim DS 800-160 MG 1 tablet for your cystoscopy today Orally as directed Jan, Not-Taking Echinacea 650 MG as directed Orally Active Ferrous Sulfate 325 (65 Fe) MG 1 tablet Orally twice daily for 90 day s Active Lidocaine HCl Jelly DETENTION 2 % 1 application to affected area as needed Intravesically prior to cystoscopy in office Jan, Active Valsartan-hydroCHLOROthiazide 320-25 MG TAKE ONE TABLE T BY MOUTH EVERY DAY for 90 Active CoQ-10 100 MG 1 capsule with a meal Orally twice daily Active Vitamin D3 50 MCG (2000 UT) 1 tablet Orally Once a day for 30 day(s) Active Apple Cider Vinegar 500 MG as directed Orally Active Ketorolac Tromethamine 10 MG 1 tablet with food or mil k as needed Orally every 6 hrs for 5 day(s) Active Omeprazole 20 MG 1 cap orally Daily for 90 days Active Garlic 100 MG as directed Orally Act nba CoQ10 100 MG as directed Orally Acti ve Simvastatin 20 MG 1 tablet in the evening Orally Once a day for 90 Active Chondroitin Sulfate 1200 mg 1 tablet Orally twice a day Active Cinnamon 500 MG as directed Orally A ctive Iron 325 (65 Fe) MG 1 tablet Orally Once a day for 30 day(s) Active Tamsulosin HCl 0.4 MG 1 capsule Orally Once a day for 30 day(s) Active Centrum Silver as directed Orally once a day Active traMADol HCl 50 MG 1 tablet as needed Orally Once a day Active amLODIPine Besylate 5 MG 1 tablet Orally Once a day for 90 days Active Vitamin C 500 MG as directed Orally Active PROCEDURES No Information RESULTS Component Value Reference Range CBC - Complete Blood Count Reviewed date:11/25/2020 16:18:33 Interpretation: Performing Lab:[facility] LABOR[facility] [address] [address] , ,[place] [address] WHITE BLOOD COUNT 10.1 4.0-10.0 RED BLOOD COUNT 4.35 4.30-6.10 HEMOGLOBIN 13.5 13.5-17.5 HEMATOCRIT 40.4 42.0-52.0 MEAN CORPUSCULAR VOLUME 92.9 80.0-96.0 MEAN CORPUSCULAR HEMOGLOBIN 31.0 27.0-33.0 MEAN CORPUSCULAR HGB CONC 33.4 32.0-36.5 RED CELL DISTRIBUTION WIDTH 12.1 11.5-14.5 PLATELET COUNT, AUTOMATED 197 150-450 Basic Metabolic Profile (BMP) Reviewed date:11/25/2020 17:52:22 Interpretation: Performing Lab:[facility] LAB[facility] [address] [address] , ,[place] [address] GLUCOSE, FASTING 142 70-100 BLOOD UREA NITROGEN 13 7-18 CREATININE FOR GFR 1.03 0.70-1.30 GLOMERULAR FILTRATION RATE > 60.0 >49 SODIUM LEVEL 138 136-145 POTASSIUM SERUM 3.8 3.5-5.1 CHLORIDE LEVEL 100 98-107 CARBON DIOXIDE LEVEL 33 21-32 CALCIUM LEVEL 9.6 8.8-10.2 [facility] Chest, 2 view (PA\Lat) Reviewed date:11/25/2020 16:18:42 Interpretation: Performing Lab:[facility] [address] ,[place] [address] URINE CULTURE Reviewed date:11/28/2020 17:46:22 Interpretation: Performing Lab:[facility] LAB[facility] [address] [address] , ,[place] [address] REASON FOR VISIT [facility] F/u 8mm stone MEDICAL (GENERAL) HISTORY Type Description Date Medical History DM with neuropathy of feet Medical History HTN Medical History Acid reflux Medical History Hx kidney stones Medical History Hyperlipidemia Medical History L1 Burst Compression Fracture Medical History Arthritis Medical History Iron deficiency anemia Medical History MABLE- on bipap Medical History Bladder tumor- follows with [facility] Urology Surgical History lithotripsy x 3 2012, 2010, Surgical History colonoscopy x2- hx polyps 2012, 2003, Surgical History T & A 1963 Surgical History EWSL 01/27/15 Surgical History CYSTOSCOPY 08/29/2018 Surgical History CYSTOSCOPY 03/13/2019 Surgical History Colonoscopy- normal- repeat 5 years 06/18 17 Surgical History CYSTOSCOPY 09/14/2019 Hospitalization History compression fx L1 1996 Goals Section No Information Health Concerns No Information MEDICAL EQUIPMENT No Information MENTAL STATUS No Information FUNCTIONAL STATUS No Information ASSESSMENTS Encounter Date Diagnosis Assessment Notes Treatment Notes Treatm ent Clinical Notes Oct, Kidney stone (ICD-10 - N20.0) - informed consent signed for cystoscopy, R ureterosocpy w/ laser lithotripsy, and R ureteral stent placement - patient brought in a stone that he passed a few wks ago (prior to his CT scan) - will send this for analysis - will need preop CBC, BMP, CXR, EKG, and urine culture - will need medical clearance Oct, Preop testing (ICD-10 - Z01.818) Oct, UTI (urinary tract infection) (ICD-10 - N39.0) PLAN OF TREATMENT Treatment Notes Assessment Notes Clinical Notes Kidney stone - informed consent s igned for cystoscopy, R ureterosocpy w/ laser lithotripsy, and R ureteral stent placement- patient brought in a stone that he passed a few wks ago (prior to his CT scan) - will send this for analysis- will need preop CBC, BMP, CXR, EKG, and urine culture- will need medical clearance Treatment Notes Test Name Order Date Calculus Analysis, Stone Shonda 2020-11-25 Electrocardiogram (EKG) 2020-11-25 Next Appt Details surgery Reason: Provider Name:Jann Perales, 02:30:00 PM, [address], , [place], [address], Provider Name:Jann Susanna Cristinakrisstephanie, 08:30:00 AM, [address] , , [place], [address], Provider Name:Arthur Prajapati, 11:30:00 AM, [address], , [place], [address], Provider Name:rAthur Prajapati, 11:00:00 AM, [address], , [place], [address], Insurance Providers Payer Name Payer Address Payer Phone Insured Name Patient Relati onship to Insured Coverage Start Date Coverage End Date [facility] [address] [place] [id number] NANCY PAEZ self
--- OUTSIDE RECORDS SUMMARY | 2021-01-27 11:05 | CCD ---
Author Author [facility] Organization [facility] Address Unknown Phone Unavailable Care Team Providers Care Housekeeper Child Care Name Role Phone [facility], [place] Unavailable Unavailable Clarence, A Luly TIP PRINTER Unavailable Unavailable Clarence, A Luly TIP PRINTER Unavailable Unavailable Clarence, A Luly TIP PRINTER Unavailable Unavailable Clarence, A Luly TIP PRINTER Unavailable Unavailable Clarence, A Luly TIP PRINTER Unavailable Unavailable Clarence, A Luly TIP PRINTER Unavailable Unavailable Clarence, A Luly TIP PRINTER Unavailable Unavailable Clarence, A Luly TIP PRINTER Unavailable Unavailable Clarence, A Luly TIP PRINTER Unavailable Unavailable Clarence, A Luly TIP PRINTER Unavailable Unavailable Clarence, A Luly TIP PRINTER Unavailable Unavailable Clarence, A Luly TIP PRINTER Unavailable Unavailable Clarence, A Luly TIP PRINTER Unavailable Unavailable Clarence, A Luly TIP PRINTER Unavailable Unavailable Clarence, A Luly TIP PRINTER Unavailable Unavailable Clarence, A Luly TIP PRINTER Unavailable Unavailable Clarence, A Luly TIP PRINTER Unavailable Unavailable Clarence, A Luly TIP PRINTER Unavailable Unavailable Clarence, A Luly TIP PRINTER Unavailable Unavailable Clarence, A Luly TIP PRINTER Unavailable Unavailable Clarence, A Luly TIP PRINTER Unavailable Unavailable Clarence, A Luly TIP PRINTER Unavailable Unavailable Clarence, A Luly TIP PRINTER Unavailable Unavailable Clarence, A Luly TIP PRINTER Unavailable Unavailable Clarence, A Luly TIP PRINTER Unavailable Unavailable Clarence, A Luly TIP PRINTER Unavailable Unavailable Clarence, A Luly TIP PRINTER Unavailable Unavailable Clarence, A Luly TIP PRINTER Unavailable Unavailable Clarence, A Luly TIP PRINTER Unavailable Unavailable Clarence, A Luly TIP PRINTER Unavailable Unavailable Clarence, A Luly TIP PRINTER Unavailable Unavailable Clarence, A Luly TIP PRINTER Unavailable Unavailable Clarence, A Luly TIP PRINTER Unavailable Unavailable Clarence, A Luly TIP PRINTER Unavailable Unavailable Clarence, A Luly TIP PRINTER Unavailable Unavailable Clarence, A Luly TIP PRINTER Unavailable Unavailable Clarence, A Luly TIP PRINTER Unavailable Unavailable Clarence, A Luly TIP PRINTER Unavailable Unavailable Clarence, A Luly TIP PRINTER Unavailable Unavailable Clarence, A Luly TIP PRINTER Unavailable Unavailable Clarence, A Luly TIP PRINTER Unavailable Unavailable Clarence, A Luly TIP PRINTER Unavailable Unavailable Clarence, A Luly TIP PRINTER Unavailable Unavailable Clarence, A Luly TIP PRINTER Unavailable Unavailable Clarence, A Luly TIP PRINTER Unavailable Unavailable Clarence, A Luly TIP PRINTER Unavailable Unavailable Clarence, A Luly TIP PRINTER Unavailable Unavailable Clarence, A Luly TIP PRINTER Unavailable Unavailable Clarence, A Luly TIP PRINTER Unavailable Unavailable Clarence, A Luly TIP PRINTER Unavailable Unavailable Clarence, A Luly TIP PRINTER Unavailable Unavailable Clarence, A Luly TIP PRINTER Unavailable Unavailable Clarence, A Luly TIP PRINTER Unavailable Unavailable Clarence, A Luly TIP PRINTER Unavailable Unavailable Clarence, A Luly TIP PRINTER Unavailable Unavailable Clarence, A Luly TIP PRINTER Unavailable Unavailable Clarence, A Luly TIP PRINTER Unavailable Unavailable Clarence, A Luly TIP PRINTER Unavailable Unavailable Clarence, A Luly TIP PRINTER Unavailable Unavailable Clarence, A Luly TIP PRINTER Unavailable Unavailable Clarence, A Luly TIP PRINTER Unavailable Unavailable Clarence, A Luly TIP PRINTER Unavailable Unavailable Clarence, A Luly TIP PRINTER Unavailable Unavailable Clarence, A Luly TIP PRINTER Unavailable Unavailable Clarence, A Luly TIP PRINTER Unavailable Unavailable Clarence, A Luly TIP PRINTER Unavailable Unavailable Clarence, A Luly TIP PRINTER Unavailable Unavailable Clarence, A Luly TIP PRINTER Unavailable Unavailable Clarence, A Luly TIP PRINTER Unavailable Unavailable Clarence, A Luly TIP PRINTER Unavailable Unavailable Clarence, A Luly TIP PRINTER Unavailable Unavailable Clarence, A Luly TIP PRINTER Unavailable Unavailable Clarence, A Luly TIP PRINTER Unavailable Unavailable Clarence, A Luly TIP PRINTER Unavailable Unavailable Clarence, A Luly TIP PRINTER Unavailable Unavailable Clarence, A Luly TIP PRINTER Unavailable Unavailable Clarence, A Luly TIP PRINTER Unavailable Unavailable Clarence, A Luly TIP PRINTER Unavailable Unavailable Clarence, A Luly TIP PRINTER Unavailable Unavailable Clarence, A Luly TIP PRINTER Unavailable Unavailable Clarence, A Luly TIP PRINTER Unavailable Unavailable Clarence, A Luly TIP PRINTER Unavailable Unavailable Clarence, A Luly TIP PRINTER Unavailable Unavailable Clarence, A Luly TIP PRINTER Unavailable Unavailable Clarence, A Luly TIP PRINTER Unavailable Unavailable Clarence, A Luly TIP PRINTER Unavailable Unavailable Clarence, A Luly TIP PRINTER Unavailable Unavailable Clarence, A Luly TIP PRINTER Unavailable Unavailable Clarence, A Luly TIP PRINTER Unavailable Unavailable Clarence, A Luly TIP PRINTER Unavailable Unavailable Clarence, A Luly TIP PRINTER Unavailable Unavailable Clarence, A Ully TIP PRINTER Unavailable Unavailable Clarence, A Luly TIP PRINTER Unavailable Unavailable Clarence, A Luly TIP PRINTER Unavailable Unavailable Clarence, A Luly TIP PRINTER Unavailable Unavailable Clarence, A Luly TIP PRINTER Unavailable Unavailable Clarence, A Luly TIP PRINTER Unavailable Unavailable Clarence, A Luly TIP PRINTER Unavailable Unavailable Clarence, A Luly TIP PRINTER Unavailable Unavailable Clarence, A Luly TIP PRINTER Unavailable Unavailable Clarence, A Luly TIP PRINTER Unavailable Unavailable Clarence, A Luly TIP PRINTER Unavailable Unavailable Clarence, A Luly TIP PRINTER Unavailable Unavailable Clarence, A Luly TIP PRINTER Unavailable Unavailable Clarence, A Luly TIP PRINTER Unavailable Unavailable Clarence, A Luly TIP PRINTER Unavailable Unavailable Clarence, A Luly TIP PRINTER Unavailable Unavailable Clarence, A Luly TIP PRINTER Unavailable Unavailable HUIZENGA, Susanna RANDHAWA DO Unavailable Unavailable HUIZENGA, Susanna RANDHAWA DO Unavailable Unavailable HUIZENGA, Susanna RANDHAWA DO Unavailable Unavailable HUIZENGA, Susanna RANDHAWA DO Unavailable Unavailable HUIZENGA, Susanna RANDHAWA DO Unavailable Unavailable HUIZENGA, Susanna RANDHAWA DO Unavailable Unavailable HUIZENGA, Susanna RANDHAWA DO Unavailable Unavailable HUIZENGA, Susanna RANDHAWA DO Unavailable Unavailable HUIZENGA, Susanna RANDHAWA DO Unavailable Unavailable HUIZENGA, Susanna RANDHAWA DO Unavailable Unavailable HUIZENGA, Susanna RANDHAWA DO Unavailable Unavailable HUIZENGA, Susanna RANDHAWA DO Unavailable Unavailable HUIZENGA, Susanna RANDHAWA DO Unavailable Unavailable HUIZENGA, Susanna RANDHAWA DO Unavailable Unavailable HUIZENGA, Susanna RANDHAWA DO Unavailable Unavailable HUIZENGA, Susanna RANDHAWA DO Unavailable Unavailable HUIZENGA, Susanna RANDHAWA DO Unavailable Unavailable HUIZENGA, Susanna RANDHAWA DO Unavailable Unavailable HUIZENGA, Susanna RANDHAWA DO Unavailable Unavailable HUIZENGA, Susanna RANDHAWA DO Unavailable Unavailable HUIZENGA, Susanna RANDHAWA DO Unavailable Unavailable HUIZENGA, Susanna RANDHAWA DO Unavailable Unavailable HUIZENGA, Susanna RANDHAWA DO Unavailable Unavailable HUIZENGA, Susanna RANDHAWA DO Unavailable Unavailable HUIZENGA, Susanna RANDHAWA DO Unavailable Unavailable HUIZENGA, Susanna RANDHAWA DO Unavailable Unavailable HUIZENGA, Susanna RANDHAWA DO Unavailable Unavailable HUIZENGA, Susanna RANDHAWA DO Unavailable Unavailable HUIZENGA, Susanna RANDHAWA DO Unavailable Unavailable HUIZENGA, Susanna RANDHAWA DO Unavailable Unavailable HUIZENGA, Susanna RANDHAWA DO Unavailable Unavailable HUIZENGA, Susanna RANDHAWA DO Unavailable Unavailable HUIZENGA, Susanna RANDHAWA DO Unavailable Unavailable HUIZENGA, Susanna RANDHAWA DO Unavailable Unavailable HUIZENGA, Susanna RANDHAWA DO Unavailable Unavailable HUIZENGA, Susanna RANDHAWA DO Unavailable Unavailable HUIZENGA, Susanna RANDHAWA DO Unavailable Unavailable HUIZENGA, Susanna RANDHAWA DO Unavailable Unavailable HUIZENGA, Susanna RANDHAWA DO Unavailable Unavailable HUIZENGA, Susanna RANDHAWA DO Unavailable Unavailable HUIZENGA, D EDIS DO Unavailable Unavailable HUIZENGA, D EDIS DO Unavailable Unavailable HUIZENGA, D EDIS DO Unavailable Unavailable HUIZENGA, D EDIS DO Unavailable Unavailable HUIZENGA, D EDIS DO Unavailable Unavailable HUIZENGA, D EDIS DO Unavailable Unavailable HUIZENGA, D EDIS DO Unavailable Unavailable HUIZENGA, D EDIS DO Unavailable Unavailable HUIZENGA, D EDIS DO Unavailable Unavailable HUIZENGA, D EDIS DO Unavailable Unavailable HUIZENGA, D EDIS DO Unavailable Unavailable HUIZENGA, D EDIS DO Unavailable Unavailable HUIZENGA, D EDIS DO Unavailable Unavailable HUIZENGA, D EDIS DO Unavailable Unavailable HUIZENGA, D EDIS DO Unavailable Unavailable HUIZENGA, D EDIS DO Unavailable Unavailable HUIZENGA, D EDIS DO Unavailable Unavailable HUIZENGA, D EDIS DO Unavailable Unavailable HUIZENGA, D EDIS DO Unavailable Unavailable HUIZENGA, D EDIS DO Unavailable Unavailable HUIZENGA, D EDIS DO Unavailable Unavailable HUIZENGA, D EDIS DO Unavailable Unavailable HUIZENGA, D EDIS DO Unavailable Unavailable HUIZENGA, D EDIS DO Unavailable Unavailable HUIZENGA, D EDIS DO Unavailable Unavailable HUIZENGA, D EDIS DO Unavailable Unavailable HUIZENGA, D EDIS DO Unavailable Unavailable HUIZENGA, D EDIS DO Unavailable Unavailable HUIZENGA, D EDIS DO Unavailable Unavailable HUIZENGA, D EDIS DO Unavailable Unavailable HUIZENGA, D EDIS DO Unavailable Unavailable HUIZENGA, D EDIS DO Unavailable Unavailable HUIZENGA, D EDIS DO Unavailable Unavailable HUIZENGA, D EDIS DO Unavailable Unavailable HUIZENGA, D EDIS DO Unavailable Unavailable HUIZENGA, D EDIS DO Unavailable Unavailable HUIZENGA, D EDIS DO Unavailable Unavailable Re-disclosure Warning The records that you are about to access may contain information from federally-assisted alcohol or drug abuse programs. If such information is present, then the following federally mandated warning applies: This information has been disclosed to you from records protected by federal confidentiality rules (42 CFR part 2). The federal rules prohibit you from making any further disclosure of this information unless further disclosure is expressly permitted by the written consent of the person to whom it pertains or as otherwise permitted by 42 CFR part 2. A general authorization for the release of medical or other information is NOT sufficient for this purpose. The Federal rules restrict any use of the information to criminally investigate or prosecute any alcohol or drug abuse patient.The records that you are about to access may contain highly sensitive health information, the redisclosure of which is protected by Article 27-F of the [place] [facility] Public Health law. If you continue you may have access to information: Regarding HIV / AIDS; Provided by facilities licensed or operated by the [facility] Office of Mental Health; or Provided by the [facility] Office for People With Developmental Disabilities. If such information is present, then the following [facility] mandated warning applies: This information has been disclosed to you from confidential records which are protected by state law. State law prohibits you from making any further disclosure of this information without the specific written consent of the person to whom it pertains, or as otherwise permitted by law. Any unauthorized further disclosure in violation of state law may result in a fine or half-way sentence or both. A general authorization for the release of medical or other information is NOT sufficient authorization for further disc losure. Encounters Encounter Providers Location Date Indications Data Source(s ) [place]patient [address] [facility] [place] [address] 01/06/2021 12:00:00 AM EDT eCW1 ([facility]) Outpatient [address] [facility] [place] [address] 11/29/2020 12:00:00 AM EDT eCW1 ([facility]) Outpatient [address] [facility] [id number] 11/25/2020 12:00:00 AM EDT eCW1 ([facility]) Unknown [address] [facility] [place] [address] 11/25/2020 12:00:00 AM EDT eCW1 ([facility]) Outpatient Attender: Luly Lima FNPReferrer: EDIS AMADOR DO 11/16/2020 10:15:00 AM T [facility] Outpatient Attender: Luly Lima FNPConsultant: [facility] [place] 11/16/2020 10:03:00 AM EDT [facility] Outpatient Attender: Luly Lima FNPReferrer: EDIS SWEENEY DO EMERGENCY ROOM-CLN2 11/16/2020 09:34:00 AM EDT - 11/16/2020 09:34:00 AM EDT [facility] [place] [address] [facility] [place] [address] 11/16/2020 12:00:00 AM EDT eCW1 ([facility]) [place] [address] [facility] [address] 08/02/2020 12:00:00 AM EDT eCW1 ([facility]) [place] [address] [facility] [place] [address] 07/07/2020 12:00:00 AM EDT eCW1 ([facility]) (Cysto1) Urology [address] [place] [address] 04/18/2020 12:00:00 AM EST eCW1 ([facility]) [place] [address] [facility] [place] [address] 01/08/2020 12:00:00 AM EDT eCW1 ([facility]) [place] [address] [facility] [place] [address] 01/08/2020 12:00:00 AM EDT eCW1 ([facility]) Immunizations Vaccine Date Status Description Data Source(s) influenza, recombinant, quadrIvalent,injectable, prese rvative free 01/06/2021 08:34:00 AM EDT completed [facility] New in 2011. IIV4 02/02/2020 09:01:00 AM EST completed [facility] ([facility]) pneumococcal polysaccharide PPV23 12/21/2019 08:07:00 AM EDT comple you eCW1 ([facility]) pneumococcal polysaccharide PPV23 12/21/2019 08:07:00 AM EDT comple you eCW1 ([facility]) pneumococcal polysaccharide PPV23 12/21/2019 08:07:00 AM EDT comple you eCW1 ([facility]) pneumococcal polysaccharide PPV23 12/21/2019 08:07:00 AM EDT comple you eCW1 ([facility]) pneumococcal polysaccharide PPV23 12/21/2019 08:07:00 AM EDT comple you eCW1 ([facility]) pneumococcal polysaccharide PPV23 12/21/2019 08:07:00 AM EDT comple you eCW1 ([facility]) pneumococcal polysaccharide PPV23 12/21/2019 08:07:00 AM EDT comple you eCW1 ([facility]) pneumococcal polysaccharide PPV23 12/21/2019 08:07:00 AM EDT comple you eCW1 ([facility]) pneumococcal polysaccharide PPV23 12/21/2019 08:07:00 AM EDT comple you eCW1 ([facility]) pneumococcal polysaccharide PPV23 12/21/2019 08:07:00 AM EDT comple you eCW1 ([facility]) IIV3. This is one of two codes replacing CVX 15, which is being retired. 12/21/2019 08:06:00 AM EDT completed eCW1 ([facility]) IIV3. This is one of two codes replacing CVX 15, which is being retired. 12/21/2019 08:06:00 AM EDT completed eCW1 ([facility]) IIV3. This is one of two codes replacing CVX 15, which is being retired. 12/21/2019 08:06:00 AM EDT completed eCW1 ([facility]) IIV3. This is one of two codes replacing CVX 15, which is being retired. 12/21/2019 08:06:00 AM EDT completed eCW1 ([facility]) IIV3. This is one of two codes replacing CVX 15, which is being retired. 12/21/2019 08:06:00 AM EDT completed eCW1 ([facility]) IIV3. This is one of two codes replacing CVX 15, which is being retired. 12/21/2019 08:06:00 AM EDT completed eCW1 ([facility]) IIV3. This is one of two codes replacing CVX 15, which is being retired. 12/21/2019 08:06:00 AM EDT completed eCW1 ([facility]) IIV3. This is one of two codes replacing CVX 15, which is being retired. 12/21/2019 08:06:00 AM EDT completed eCW1 ([facility]) IIV3. This is one of two codes replacing CVX 15, which is being retired. 12/21/2019 08:06:00 AM EDT completed eCW1 ([facility]) IIV3. This is one of two codes replacing CVX 15, which is being retired. 12/21/2019 08:06:00 AM EDT completed eCW1 ([facility]) INFLUENZA VIRUS VACCINE QUADRIVALENT 2019- (6 MOS AN D UP) 12/04/2019 12:00:00 AM EDT completed [facility] PNEUMOCOCCAL 13-VALENT CONJUGATE VACCINE (DIPHTHERIA C RM)/PF 12/04/2019 12:00:00 AM EDT completed [facility] Medications Medication Brand Name Start Date Product Form Dose Route Admi nistrative Instructions Pharmacy Instructions Status Indications Reaction Description Data Source(s) 50 mg 11/16/2020 12:00:00 AM EDT tablet 14 TAKE ONE TABLET BY MOUTH TWICE A DAY NEEDED FOR SEVERE PAIN MAXIMUM DAILY DOSE = 2 TAKE ONE TABLET BY MOUTH TWICE A DAY NEEDED FOR SEVERE PAIN MAXIMUM DAILY DOSE = 2 SOLD: 11/16/2020 [facility] 0.4 mg 11/16/2020 12:00:00 AM EDT capsule 30 TAKE ONE CAPSULE BY MOUTH EVERY DAY TAKE ONE CAPSULE BY MOUTH EVERY DAY SOLD: 11/16/2020 [facility] 10 mg 11/16/2020 12:00:00 AM EDT tablet 20 TAKE ONE TABLET BY MOUTH EVERY 6 HOURS NEEDED WITH FOOD OR MILK TAKE ONE TABLET BY MOUTH EVERY 6 HOURS A S NEEDED WITH FOOD OR MILK SOLD: 11/16/2020 [facility] 1,000 mg 11/04/2020 12:00:00 AM EDT tablet 180 TAKE ONE TABLET BY MOUTH TWICE A DAY WITH MEALS TAKE ONE TABLET BY MOUTH TWICE A DAY WITH MEALS SOLD: 11/11/2020 [facility] 320-25 mg 11/04/2020 12:00:00 AM EDT tablet 90 TAKE ONE TABLET BY MOUTH EVERY DAY TAKE ONE TABLET BY MOUTH EVERY DAY SOLD: 11/11/2020 [facility] 20 mg 08/02/2020 12:00:00 AM EDT capsule,delayed release (DR/EC) 90 TAKE ONE CAPSULE BY MOUTH EVERY DAY TAKE ONE CAPSULE BY MOUTH EVERY DAY SOLD: 11/11/2020 [facility] 5 mg 08/02/2020 12:00:00 AM EDT tablet 90 TAKE ONE TABLET BY MOUTH EVERY DAY TAKE ONE TABLET BY MOUTH EVERY DAY SOLD: 08/11/2020 [facility] 5 mg 08/02/2020 12:00:00 AM EDT tablet 90 TAKE ONE TABLET BY MOUTH EVERY DAY TAKE ONE TABLET BY MOUTH EVERY DAY SOLD: 11/11/2020 [facility] 20 mg 08/02/2020 12:00:00 AM EDT capsule,delayed release (DR/EC) 90 TAKE ONE CAPSULE BY MOUTH EVERY DAY TAKE ONE CAPSULE BY MOUTH EVERY DAY SOLD: 08/11/2020 [facility] 10 mg 05/06/2020 12:00:00 AM EST tablet 180 TAKE 1 TABLET BY MOUTH 2 TIMES A DAY TAKE 1 TABLET BY MOUTH 2 TIMES A DAY SOLD: 08/11/2020 [facility] 10 mg 05/06/2020 12:00:00 AM EST tablet 180 TAKE 1 TABLET BY MOUTH 2 TIMES A DAY TAKE 1 TABLET BY MOUTH 2 TIMES A DAY SOLD: 05/09/2020 [facility] 10 mg 05/06/2020 12:00:00 AM EST tablet 180 TAKE 1 TABLET BY MOUTH 2 TIMES A DAY TAKE 1 TABLET BY MOUTH 2 TIMES A DAY SOLD: 11/11/2020 [facility] 20 mg 05/06/2020 12:00:00 AM EST tablet 90 TAKE 1 TABLET BY MOUTH IN THE EVENING ONCE DAILY TAKE 1 TABLET BY MOUTH IN THE EVENING ONCE DAILY SOLD: 08/11/2020 [facility] 20 mg 05/06/2020 12:00:00 AM EST tablet 90 TAKE 1 TABLET BY MOUTH IN THE EVENING ONCE DAILY TAKE 1 TABLET BY MOUTH IN THE EVENING ONCE DAILY SOLD: 05/09/2020 [facility] 20 mg 05/06/2020 12:00:00 AM EST tablet 90 TAKE 1 TABLET BY MOUTH IN THE EVENING ONCE DAILY TAKE 1 TABLET BY MOUTH IN THE EVENING ONCE DAILY SOLD: 11/11/2020 [facility] Sulfamethoxazole 800 MG / Trimethoprim 160 MG Oral Tab let 800-160 mg SULFAMETHOXAZOLE/TRIMETHOPRIM 04/18/2020 12:00:00 AM EST tablet 1 TAKE ONE TABLET BY MOUTH ONCE FOR CYSTOCOPY TODAY DIRECTED TAKE ONE TABLET BY MOUTH ONCE FOR CYSTOCOPY TODAY DIRECTED SOLD: 04/18/2020 [facility] 320-25 mg 11/09/2019 12:00:00 AM EDT tablet 90 TAKE ONE TABLET BY MOUTH EVERY DAY TAKE ONE TABLET BY MOUTH EVERY DAY SOLD: 05/09/2020 [facility] 320-25 mg 11/09/2019 12:00:00 AM EDT tablet 90 TAKE ONE TABLET BY MOUTH EVERY DAY TAKE ONE TABLET BY MOUTH EVERY DAY SOLD: 08/11/2020 [facility] 320-25 mg 11/09/2019 12:00:00 AM EDT tablet 90 TAKE ONE TABLET BY MOUTH EVERY DAY TAKE ONE TABLET BY MOUTH EVERY DAY SOLD: 02/11/2020 [facility] Metformin hydrochloride 1000 MG Oral Tablet 1,000 mg METFORM IN HCL 11/04/2019 12:00:00 AM EDT tablet 180 TAKE 1 TABLET BY MOUTH TW O TIMES A DAY WITH MEALS TAKE 1 TABLET BY MOUTH TWO TIMES A DAY WITH MEALS SOLD: 05/09/2020 [facility] 1,000 mg 11/04/2019 12:00:00 AM EDT tablet 180 TAKE 1 TABLET BY MOUTH TWO TIMES A DAY WITH MEALS TAKE 1 TABLET BY MOUTH TWO TIMES A DAY WITH MEALS SOLD : 08/11/2020 [facility] Metformin hydrochloride 1000 MG Oral Tablet 1,000 mg METFORM IN HCL 11/04/2019 12:00:00 AM EDT tablet 180 TAKE 1 TABLET BY MOUTH TW O TIMES A DAY WITH MEALS TAKE 1 TABLET BY MOUTH TWO TIMES A DAY WITH MEALS SOLD: 02/11/2020 [facility] 20 mg 07/31/2019 12:00:00 AM EDT capsule,delayed release (DR/EC) 90 TAKE ONE CAPSULE BY MOUTH EVERY DAY TAKE ONE CAPSULE BY MOUTH EVERY DAY SOLD: 05/09/2020 [facility] 325 mg (65 mg iron) 07/31/2019 12:00:00 AM EDT tablet 180 TAKE ONE TABLET BY MOUTH TWICE A DAY TAKE ONE TABLET BY MOUTH TWICE A DAY SOLD: 05/09/2020 [facility] 20 mg 07/31/2019 12:00:00 AM EDT capsule,delayed release (DR/EC) 90 TAKE ONE CAPSULE BY MOUTH EVERY DAY TAKE ONE CAPSULE BY MOUTH EVERY DAY SOLD: 02/11/2020 [facility] 5 mg 07/31/2019 12:00:00 AM EDT tablet 90 TAKE ONE TABLET BY MOUTH EVERY DAY TAKE ONE TABLET BY MOUTH EVERY DAY SOLD: 02/11/2020 [facility] 5 mg 07/31/2019 12:00:00 AM EDT tablet 90 TAKE ONE TABLET BY MOUTH EVERY DAY TAKE ONE TABLET BY MOUTH EVERY DAY SOLD: 05/09/2020 [facility] 325 mg (65 mg iron) 07/31/2019 12:00:00 AM EDT tablet 180 TAKE ONE TABLET BY MOUTH TWICE A DAY TAKE ONE TABLET BY MOUTH TWICE A DAY SOLD: 02/11/2020 [facility] 20 mg 04/30/2019 12:00:00 AM EST tablet 90 TAKE ONE TABLET BY MOUTH EVERY EVENING TAKE ONE TABLET BY MOUTH EVERY EVENING SOLD: 02/11/2020 [facility] 10 mg 04/30/2019 12:00:00 AM EST tablet 180 TAKE ONE TABLET BY MOUTH TWICE A DAY TAKE ONE TABLET BY MOUTH TWICE A DAY SOLD: 02/11/2020 [facility] Insurance Providers Payer name Policy type / Coverage type Policy ID Covered republican ID Covered republican's relationship to medrano Policy Med[place] Plan Information [facility] FEDERAL [id number] SP [id number] [employer] [id number] S [id number] [employer] FEDERAL EMPLOYEE PROGRAM [id number] SP [id number] [employer] [id number] S [id number] ANSI-Commercial [id number] ANSI-Commercial [id number] [facility] FEDERAL EMPLOYEE PROGRAM [id number] SP [id number] ANSI-Commercial [id number] ANSI-Commercial [id number] ANSI-Commercial [id number] ANSI-Commercial [id number] [facility] [id number] SP [id number] ANSI-Commercial [id number] [facility] EMPLOYEE PROGRAM [id number] SP [id number] Problems, Conditions, and Diagnoses Code Display Name Description Problem Type Effective Dates Data Source(s) K76.0 Fatty (change of) liver, not elsewhere c lassified FATTY (CHANGE OF) LIVER, NOT ELSEWHERE CLASSIFIED Diagnosis 11/16/2020 10:30:00 AM [facility] K57.31 Diverticulosis of large inte alicia without perforation or abscess with bleeding DVRTCLOS OF LG INT W/O PERFORATION OR ABSCESS W BL Diagnosis 11/16/2020 10:30:00 AM [facility] I10 Essential (primary) hypertension ESSENTIAL (PRIMARY) H YPERTENSION Diagnosis 11/16/2020 09:34:00 AM [facility] R10.9 Unspecified abdominal pain UNSPECIFIED ABDOMINAL PAIN Diagnosis 11/16/2020 09:34:00 AM [facility] N20.0 Calculus of kidney CALCULUS OF KIDNEY Diagnosis 09:34:00 AM [facility] N20.0 Kidney stone Kidney stones Problem 11/29/2020 12:00:00 AM EDT eCW1 ([facility]) N20.0 Kidney stone Kidney stone Problem 11/25/2020 12:00:00 A M EDT eCW1 ([facility]) Z01.818 Pre-procedure evaluation check Preop testing Problem 11/25/2020 12:00:00 AM EDT eCW1 ([facility]) N39.0 Urinary tract infectious disease UTI (urinary tract in fection) Problem 11/25/2020 12:00:00 AM EDT [facility]CW1 [facility] [facility]) Surgeries/Procedures Procedure Description Date Indications Data Source(s) Imm: Flublok Quadrivalent 18 years & older 0.5mL IM Influenz a 01/06/2021 12:00:00 AM EDT eCW1 ([facility]) Results ID Date Data Source [id number] 11/28/2020 09:10:00 AM EDT [facility] Name Value Range Interpretation Code Description Data Usha rce(s) Supporting Document(s) SARS-CoV-2 (COVID-19) RNA [Presence] in Respiratory specimen by SKIP with probe detection Positive for [facility] This lab was ordered by [facility] and reported by [employer] ID Date Data Source URINE CULTURE 11/25/2020 12:00:00 AM EDT eCW1 ([facility]) Name Value Range Interpretation Code Description Data Usha rce(s) Supporting Document(s) URINE CULTURE eCW1 ([facility]) ID Date Data Source [facility] Chest, 2 view (PA\\Lat) 11/25/2020 12:00:00 AM EDT eCW1 ( [facility]) Name Value Range Interpretation Code Description Data Usha rce(s) Supporting Document(s) [facility] Chest, 2 view (PA\\Lat) eCW 1 ([facility]) ID Date Data Source Basic Metabolic Profile (BMP) 11/25/2020 12:00:00 AM EDT eCW 1 ([facility]) Name Value Range Interpretation Code Description Data Usha rce(s) Supporting Document(s) 142 70-100 GLUCOSE, FASTING eCW1 ([facility]) 13 7-18 BLOOD UREA NITROGEN eCW1 ([facility]) > 60.0 >49 GLOMERULAR FILTRATION RATE eCW 1 ([facility]) 1.03 0.70-1.30 CREATININE FOR GFR eCW1 ([facility]) 3.8 3.5-5.1 POTASSIUM SERUM eCW1 ([facility]) 100 98-107 CHLORIDE LEVEL eCW1 ([facility]) 138 136-145 SODIUM LEVEL eCW1 ([facility]) 9.6 8.8-10.2 CALCIUM LEVEL eCW1 ([facility]) 33 21-32 CARBON DIOXIDE LEVEL eCW1 ([facility]) ID Date Data Source CBC - Complete Blood Count 11/25/2020 12:00:00 AM EDT eCW1 ( [facility]) Name Value Range Interpretation Code Description Data Usha rce(s) Supporting Document(s) 10.1 4.0-10.0 WHITE BLOOD COUNT eCW1 ([facility]) 13.5 13.5-17.5 HEMOGLOBIN eCW1 ([facility]) 40.4 42.0-52.0 HEMATOCRIT eCW1 ([facility]) 4.35 4.30-6.10 RED BLOOD COUNT eCW1 ([facility]) 33.4 32.0-36.5 MEAN CORPUSCULAR HGB CONC eCW1 ([facility]) 92.9 80.0-96.0 MEAN CORPUSCULAR VOLUME e CW1 ([facility]) 31.0 27.0-33.0 MEAN CORPUSCULAR HEMOGLOB IN eCW1 ([facility]) 12.1 11.5-14.5 RED CELL DISTRIBUTION WID TH eCW1 ([facility]) 197 150-450 PLATELET COUNT, AUTOMATED eCW1 ([facility]) ID Date Data Source [id number] 11/16/2020 11:17:00 AM EDT [facility] DATE OF EXAMINATION: 11/16/2020 10:18 EDT ABD/PEL NO CONTRAST HISTORY: Left posterior flank pain. History of kidney stones TECHNIQUE: This CT exam was performed using the following dose reduction techniques:automated exposure control, adjustment of mA and/or kV according to thepatient's size, and use of iterative reconstruction technique. Standard contiguous axial spiral imaging was obtained from the dome of thediaphragms through the symphysis pubis without oral contrast and withoutintravenous contrast administration and with coronal reformatting. FINDINGS: Lower thorax: Calcified granulomas ABDOMEN: Liver: Moderate fatty infiltration. No focal massGallbladder and bile ducts: Unremarkable unremarkablePancreas: UnremarkableSpleen: UnremarkableAdrenals: UnremarkableKidneys and ureters: Nonobstructive 6 mm stone in the posterior aspect of themid to lower pole of right kidney. There is moderate right- sidedhydroureteronephrosis secondary to a 8 x 6 mm stone at the junction of mid anddistal thirds of the right ureter. There is a 5 mm nonobstructive stone in themid to lower pole of left kidney.Stomach and bowel: On opacified. Mild to moderate sigmoid diverticulosis withoutinflammatory changes.Appendix: Normal PELVIS: Bladder: Unopacified and nondistended, unremarkableReproductive: Unremarkable No free fluid or free air IMPRESSION: 8 x 6 mm stone at the junction of mid and distal thirds of the right ureter withmoderate right-sided hydronephrosis. Bilateral renal stones as described above. Mild to moderate sigmoid diverticulosis without inflammatory changes. Moderate fatty infiltration of liver with hepatomegaly at 23.6 cm. Electronically signed in PS[employer] by: Amari Aguilera M.D. 11/16/2020 11:12 EDT Name Value Range Interpretation Code Description Data Usha rce(s) Supporting Document(s) ID Date Data Source [id number] 11/16/2020 10:34:00 AM EDT [facility] Name Value Range Interpretation Code Description Data Usha rce(s) Supporting Document(s) URINE RBC 1-3 /hpf 0-3 [facility] URINE WBC 1-3 /hpf 0-5 [facility] URINE EPITHELIAL CELLS 1+ /hpf 0 [facility] URINE BACTERIA 1+ NONE SEEN [facility] ID Date Data Source [id number] 11/16/2020 10:34:00 AM EDT [facility] l Name Value Range Interpretation Code Description Data Usha rce(s) Supporting Document(s) URINE COLOR. [facility] URINE APPEARANCE CLEAR [facility] URINE GLUCOSE (UA) NEGATIVE mg/dL NEGATIVE [facility] URINE BILIRUBIN NEGATIVE NEGATIVE [facility] URINE KETONE NEGATIVE mg/dL NEGATIVE [facility],URINE 1.020 1.005-1.030 [facility] URINE BLOOD 2+(MODERATE) NEGATIVE H [facility] PH,URINE 6.5 5.0-9.0 [facility] URINE PROTEIN NEGATIVE mg/dL NEGATIVE [facility] URINE UROBILINOGEN 0.2 mg/dL 0-1 [facility] URINE NITRATE NEGATIVE NEGATIVE [facility] URINE LEUKOCYTE ESTERASE NEGATIVE NEGATIVE [facility] ID Date Data Source LIPID PANEL (CARDIAC RISK) 07/07/2020 12:00:00 AM EDT eCW1 ( [facility]) Name Value Range Interpretation Code Description Data Usha rce(s) Supporting Document(s) Cholesterol in HDL [Moles/volume] in Serum or Plasma 39 >40 HDL CHOLESTEROL eCW1 ([facility]) HDL CHOLESTEROL Triglyceride [Mass/volume] in Serum or Plasma by calculation 288 <150 TRIGLYCERIDES LEVEL eCW1 ([facility]) TRIGLYCERIDES LEVEL Cholesterol [Moles/volume] in Serum or Plasma 170 <200 CHOLESTEROL LEVEL eCW1 ([facility]) CHOLESTEROL LEVEL 4.358 <5 CHOLESTEROL RISK RATIO eCW1 ([facility]) CHOLESTEROL RISK RATIO Cholesterol in LDL [Mass/volume] in Serum or Plasma by calculation 73 <100 LDL CHOLESTEROL eCW1 ([facility]) LDL CHOLESTEROL 131 NON-HDL-C eCW1 ([facility]) NON-HDL-C ID Date Data Source [id number] 07/07/2020 12:00:00 AM EDT eCW1 ([facility]) Name Value Range Interpretation Code Description Data Usha rce(s) Supporting Document(s) Hemoglobin A1c/Hemoglobin.total in Blood 6.6 HEMOGLOBIN A1c eCW1 ([facility]) HEMOGLOBIN A1c ID Date Data Source IRON (FE) 07/07/2020 12:00:00 AM EDT eCW1 ([facility]) Name Value Range Interpretation Code Description Data Usha rce(s) Supporting Document(s) 82 65-175 IRON (FE) eCW1 ([facility]) IRON (FE) ID Date Data Source Comprehensive Metabolic Profile (CMP) 07/07/2020 12:00:00 AM EDT eCW1 ([facility]) Name Value Range Interpretation Code Description Data Usha rce(s) Supporting Document(s) 17 7-18 BLOOD UREA NITROGEN eCW1 ([facility]) 154 70-100 GLUCOSE, FASTING eCW1 ([facility]) 0.83 0.70-1.30 CREATININE FOR GFR eCW1 ([facility]) 141 136-145 SODIUM LEVEL eCW1 ([facility]) > 60.0 >49 GLOMERULAR FILTRATION RATE eCW 1 ([facility]) 103 98-107 CHLORIDE LEVEL eCW1 ([facility]) 4.4 3.5-5.1 POTASSIUM SERUM eCW1 ([facility]) 34 21-32 CARBON DIOXIDE LEVEL eCW1 ([facility]) 9.3 8.8-10.2 CALCIUM LEVEL eCW1 ([facility]) 34 7-37 AST/SGOT eCW1 ([facility]) 61 12-78 ALT/SGPT eCW1 ([facility]) 64 45-117 ALKALINE PHOSPHATASE eCW1 ([facility]) 0.4 0.2-1.0 BILIRUBIN,TOTAL eCW1 ([facility]) 7.1 6.4-8.2 TOTAL PROTEIN eCW1 ([facility]) 1.2 ALBUMIN/GLOBULIN RATIO eCW1 ([facility]) 3.8 3.2-5.2 ALBUMIN eCW1 ([facility]) ID Date Data Source CBC with Differential 07/07/2020 12:00:00 AM EDT eCW1 ([facility]) Name Value Range Interpretation Code Description Data Usha rce(s) Supporting Document(s) 7.0 4.0-10.0 WHITE BLOOD COUNT eCW1 ([facility]) 4.22 4.30-6.10 RED BLOOD COUNT eCW1 ([facility]) 39.5 42.0-52.0 HEMATOCRIT eCW1 ([facility]) 13.0 13.5-17.5 HEMOGLOBIN eCW1 ([facility]) 32.9 32.0-36.5 MEAN CORPUSCULAR HGB CONC eCW1 ([facility]) 30.8 27.0-33.0 MEAN CORPUSCULAR HEMOGLOB IN eCW1 ([facility]) 93.6 80.0-96.0 MEAN CORPUSCULAR VOLUME e CW1 ([facility]) 12.7 11.5-14.5 RED CELL DISTRIBUTION WID TH eCW1 ([facility]) 52.0 36.0-66.0 NEUTROPHILS % eCW1 ([facility]) 194 150-450 PLATELET COUNT, AUTOMATED eCW1 ([facility]) 32.8 24.0-44.0 LYMPH % eCW1 ([facility]) 3.3 0.0-3.0 EOS % eCW1 ([facility]) 10.9 2.0-8.0 MONO % eCW1 ([facility]) 0.6 0.0-1.0 BASO % eCW1 ([facility]) 2.3 1.5-5.0 LYMPH # eCW1 ([facility]) 3.6 1.5-8.5 NEUTROPHILS # eCW1 ([facility]) 0.2 0.0-0.5 EOS # eCW1 ([facility]) 0.0 0.0-0.2 BASO # eCW1 ([facility]) 0.8 0.0-0.8 MONO # eCW1 ([facility]) ID Date Data Source NON SCIENTIFIC SOFTWARE ENGINEER CYTOLOGY REQ FOR SERVI 04/18/2020 12:00:00 AM EST eC W1 ([facility]) Name Value Range Interpretation Code Description Data Usha rce(s) Supporting Document(s) URINE eCW1 ([facility]) ID Date Data Source PSA SCREENING 01/08/2020 01:45:36 PM EDT eCW1 ([facility]) Name Value Range Interpretation Code Description Data Usha rce(s) Supporting Document(s) 0.44 PSA SCREENING eCW1 ([facility]) PSA SCREENING Procedure Social History Code Duration Value Status Description Data Source(s ) Smoking 03/17/2020 12:00:00 AM EST Patient is a former smoker completed Patient is a former smoker GLYNN ([facility], ) Vital Signs ID Date Data Source UNK Name Value Range Interpretation Code Description Data Source(s) Body weight 348 [lb_av] 348 [lb_av] eCW1 ([facility]) Heart rate 72 /min 72 /min eCW1 ([facility]) Respiratory rate 18 /min 18 /min eCW1 ([facility]) Body temperature 97.3 [degF] 97.3 [degF] eCW1 ( [facility]) Systolic blood pressure 155 mm[Hg] 155 mm[Hg] e CW1 ([facility]) Diastolic blood pressure 79 mm[Hg] 79 mm[Hg] eCW1 ([facility]) Body weight 157.85 kg 157.85 kg eCW1 ([facility]) Body height 71 [in_i] 71 [in_i] eCW1 ([facility]) Body mass index (BMI) [Ratio] 48.53 kg/m2 48.53 kg/m2 eCW1 ([facility]) Body weight 348.8 [lb_av] 348.8 [lb_av] eCW1 ([facility]) Body weight 158.21 kg 158.21 kg eCW1 ([facility]) Body height 71 [in_i] 71 [in_i] eCW1 ([facility]) Body mass index (BMI) [Ratio] 48.64 kg/m2 48.64 kg/m2 eCW1 ([facility]) Heart rate 72 /min 72 /min eCW1 ([facility]) Respiratory rate 18 /min 18 /min eCW1 ([facility]) Body temperature 95.8 [degF] 95.8 [degF] eCW1 ( [facility]) Systolic blood pressure 148 mm[Hg] 148 mm[Hg] e CW1 ([facility]) Diastolic blood pressure 75 mm[Hg] 75 mm[Hg] eCW1 ([facility]) Body weight 362.8 [lb_av] 362.8 [lb_av] eCW1 ([facility]) Body height 71 [in_i] 71 [in_i] eCW1 ([facility]) Body mass index (BMI) [Ratio] 50.59 kg/m2 50.59 kg/m2 eCW1 ([facility]) Heart rate 69 /min 69 /min eCW1 ([facility]) Respiratory rate 18 /min 18 /min eCW1 ([facility]) Body temperature 97.1 [degF] 97.1 [degF] eCW1 ( [facility]) Systolic blood pressure 157 mm[Hg] 157 mm[Hg] e CW1 ([facility]) Diastolic blood pressure 95 mm[Hg] 95 mm[Hg] eCW1 ([facility]) Body weight 358.7 [lb_av] 358.7 [lb_av] eCW1 ([facility]) Body height 71 [in_i] 71 [in_i] eCW1 ([facility]) Body mass index (BMI) [Ratio] 50.02 kg/m2 50.02 kg/m2 W1 ([facility]) Heart rate 65 /min 65 /min eCW1 ([facility]) Respiratory rate 18 /min 18 /min eCW1 ([facility]) Body temperature 97.2 [degF] 97.2 [degF] eCW1 ( [facility]) Systolic blood pressure 158 mm[Hg] 158 mm[Hg] e CW1 ([facility]) Diastolic blood pressure 88 mm[Hg] 88 mm[Hg] eCW1 ([facility]) Body mass index (BMI) [Ratio] 50.2 kg/m2 50.2 k g/m2 MEDENT ([facility] ) [place] body weight 172 [lb_av] 172 [lb_av] MEDEN T ([facility] ) Body weight 163.296 kg 163.296 kg MEDENT ([facility]) Body surface area Derived from formula 2.71 m2 2.71 m2 [facility] ([facility]) Systolic blood pressure 150 mm[Hg] 150 mm[Hg] M EDENT ([facility]) Body weight 360.00 [lb_av] 360.00 [lb_av] MEDEN T ([facility]) Heart rate 73 /min 73 /min [facility] ([facility]) Oxygen saturation in Arterial blood by Pulse oximetry 97 % 97 % [facility] ([facility]) Body height 71 [in_i] 71 [in_i] [facility] ([facility]) 5'11" Diastolic blood pressure 100 mm[Hg] 100 mm[Hg] [facility] ([facility]) Body weight 359 [lb_av] 359 [lb_av] eCW1 ([facility]) Body height 71 [in_i] 71 [in_i] eCW1 ([facility]) Body mass index (BMI) [Ratio] 50.06 kg/m2 50.06 kg/m2 eCW1 ([facility]) Heart rate 72 /min 72 /min eCW1 ([facility]) Respiratory rate 18 /min 18 /min eCW1 ([facility]) Body temperature 97.0 [degF] 97.0 [degF] eCW1 ( [facility]) Systolic blood pressure 163 mm[Hg] 163 mm[Hg] e CW1 ([facility]) Diastolic blood pressure 93 mm[Hg] 93 mm[Hg] eCW1 ([facility])
--- OUTSIDE RECORDS SUMMARY | 2021-01-27 11:05 | CCD ---
Author Author [facility] Organization [facility] Address Unknown Phone Unavailable Care Team Providers Care Learning And Development Coordinator Name Role Phone Jann Perales Unavailable PROBLEMS Type Condition ICD9-CM Code EFL67-EN Code Onset Dates Condition S tatus W/U Status Risk SNOMED Code Notes Problem Personal history of malignant neoplasm of bladder Z85.51 Active confirmed 515168365 Problem Hyperlipidemia E78.5 Active confirmed 32028 004 Problem Osteoarthritis M19.90 Active confirmed 61965 5006 Problem GERD (gastroesophageal reflux disease) K21.9 A ctive confirmed [id number] Problem Hypertension I10 Active confirmed 4266948 3 Problem Iron deficiency anemia D50.9 Active confirmed 77455925 Problem Kidney stone N20.0 Active confirmed 3149920 7 Problem Diabetic neuropathy E11.40 Active confirmed 411384976 Problem UTI (urinary tract infection) N39.0 Active confirm ed 22957186 Problem Diabetes E11.9 Active confirmed 79448300 Problem Bladder cancer C67.9 Active confirmed 20316 6009 Problem History of colon polyps Z86.010 Active confirmed 818809385 Problem Screening for prostate cancer Z12.5 Active confirm ed 853172037 Problem Preop testing Z01.818 Active confirmed 36233 9001 ALLERGIES No Known Allergies ENCOUNTERS from 1957 to 2020-11-25 Encounter Location Date Provider Diagnosis [facility] [phone] [place] [address] Oct, Jann Perales Pre-op evaluation Z01.[address] N20.0 IMMUNIZATIONS Vaccine Route Administration Date Status Pneumovax [...] 90 day s Active Lidocaine HCl Jelly PENITENTIARY 2 % 1 application to affected area [...] directed Orally Active PROCEDURES No Information RESULTS No Results REASON FOR VISIT No Information MEDICAL (GENERAL) HISTORY Type Description Date Medical History DM with neuropathy of feet Medical History HTN Medical History Acid reflux Medical History Hx kidney stones Medical History Hyperlipidemia Medical History L1 Burst Compression Fracture Medical History Arthritis Medical History Iron deficiency anemia Medical History MABEL- on bipap Medical History Bladder tumor- follows with [facility] Urology Surgical History lithotripsy x 3 2012, [...] Treatment Notes Treatm ent Clinical Notes Oct, Pre-op evaluation (ICD-10 - Z01.818) Oct, Kidney stones (ICD-10 - N20.0) PLAN OF TREATMENT Future Test Test Name Order Date CBC with Differential [id number] Comprehensive Metabolic Profile (CMP) [id number] URINE CULTURE [id number] Next Appt Details Provider Name:Jann Susanna Perales, 02:30:00 PM, [address], , [place], [address], Provider Name:Jann Perales, 08:30:00 AM, [address], , [place], [address], Provider Name:Arthur Prajapati, 11:30:00 AM, [id number], , [place], [address], Provider Name:Arthur Prajapati, 11:00:00 AM, [id number], , [place], [address], Insurance Providers Payer Name Payer Address Payer Phone Insured Name Patient Relati onship to Insured Coverage Start Date Coverage End Date JEANNE VÁZQUEZ [address] [facility] [id number] [phone] NANCY PAEZ self
[2021-01-27] MEDS ORDERED: ROCURONIUM BROMIDE 50 MG/5 ML VIAL As Ordered ONE (11:31)
[2021-01-27] MEDS ORDERED: MIDAZOLAM INJ 2MG/2ML VIAL (J2250 PER 1MG) As Ordered ONE (11:31)
[2021-01-27] MEDS ORDERED: propofoL 200 MG/20 ML VIAL As Ordered ONE (11:31)
[2021-01-27] MEDS ORDERED: LIDOCAINE 2% 100MG/5ML SDV (FOR ANES.) As Ordered ONE (11:31)
[2021-01-27] MEDS ORDERED: dexameTHASONE 4 MG/ML 1ML VIAL (J1100 PER 1MG) As Ordered ONE (11:32)
[2021-01-27] MEDS ORDERED: fentaNYL 100 MCG/2 ML INJECTION (J3010) As Ordered ONE ×2 (11:32→13:32)
[2021-01-27] MEDS ORDERED: ONDANSETRON 4MG/2ML VIAL As Ordered ONE (11:32)
[2021-01-27] MEDS ORDERED: SUGAMMADEX SODIUM 500 MG/5 ML VIAL (BRIDION) As Ordered ONE (15:06)
--- NOTE | 2021-01-27 15:11 | REP ---
INDICATION: RIGHT, CYSTO, URETEROSCOPY W/LASER LITHOTRIPSY, STENT PLACEM. COMPARISON: None. TECHNIQUE: Two spot KUBs obtained during right-sided retrograde pyelogram and double pigtail stent placement. 26 seconds of fluoroscopy time was provided Dr. Prajapati for the procedure. FINDINGS: A small amount of radiographic contrast material is seen opacifying the right renal collecting system. The proximal portion of the double pigtail scan is in the region of the proximal renal pelvis and the distal portion of which is in the region of the urinary bladder on the right. IMPRESSION: As above <Electronically signed by Javier Zamorano > 01/27/21 1408
[2021-01-27] MEDS ORDERED: ACETAMINOPHEN 1000MG 100ML IV BTL (OFIRMEV) (J0131 PER 10MG) As Ordered ONE (15:17)
[2021-01-27] MEDS ORDERED: OXYC1TAB23 PO (15:32)
--- NOTE | 2021-01-27 15:54 | RO ---
OPERATIVE NOTE DATE OF OPERATION: 01/27/2021 PREOPERATIVE DIAGNOSIS: Right kidney and ureteral stones. POSTOPERATIVE DIAGNOSIS: Right kidney and ureteral stones. PROCEDURE: Cystoscopy, right ureteroscopy with laser lithotripsy and basket extraction of stones, right retrograde pyelogram with intraop interpretation of images, right ureteral stent placement. SURGEON: Arthur Prajapati MD COOKER MEAL: None. ANESTHESIA: General. OPERATIVE INDICATIONS: This is a 65-year-old male who was found to have an obstructing 8-9 mm distal right ureteral stone. He is brought to the operating room today for treatment. DESCRIPTION OF PROCEDURE: The patient was brought to the operating room and general anesthesia was induced. Prophylactic antibiotics were infused. He was placed in dorsal lithotomy position and prepped and draped in usual sterile fashion. Rigid cystoscope was inserted in urethral meatus and advanced to the bladder. A guidewire was advanced up the right collecting system. I then advanced the ureteral access sheath up the right collecting system. I went up the access sheath with a flexible ureteroscope and within the mid to distal ureter an approximately 9 mm stone was seen. It was completely embedded. I utilized a 272 micron laser fiber to fragment the stone into smaller pieces and off the wall of the ureter. This took a significant amount of time because the stone was impacted. After all the fragments were released they were removed using a stone basket. I then examined the kidney and only one small stone fragment was seen. A retrograde pyelogram was performed and it was notable for severe right hydroureteronephrosis but no extravasation. I then withdrew the ureteroscope along with the access sheath and no additional stones were seen inside the ureter. At this point the guidewire was utilized to advance a 7-Chinese x 22-32 cm JJ ureteral stent up the right collecting system. The wire was then removed and there were adequate curls of the stent in the right renal pelvis and the bladder. At this point the bladder was emptied of all fluids and this marked the conclusion of the procedure. The patient was taken out of the dorsal lithotomy position, awakened from anesthesia and transferred to the recovery room in stable condition. ESTIMATED BLOOD LOSS: 5 mL. COMPLICATIONS: None. SPECIMEN: Kidney stone fragments. PLAN: The patient will follow up in urology clinic in approximately 3-4 weeks for stent removal. I will leave the stent in a little bit longer given the potential scarring in the ureter. [facility]
[2021-01-27] MEDS ORDERED: oxyCODONE 5MG TAB PO PRN (16:05)
[2021-01-27] MEDS ORDERED: LR 1,000 ML IV SCH (16:05)
[2021-01-27] MEDS ORDERED: ONDANSETRON 4MG/2ML VIAL IV PRN (16:05)
[2021-01-27] MEDS ORDERED: fentaNYL 100 MCG/2 ML INJECTION (J3010) IV PRN (16:05)
[2021-01-27] MEDS ORDERED: PERCOCET 5MG/325MG TAB PO PRN (16:10)
[2021-01-27 16:35] VITALS: BP 170/80
[2021-02-02 13:09] LABS: CA Oxalate Dihy 50 % (.); Ca Ox Monohydrate 50 % (.); Size 6x4 mm (.)
== END 2021-01-27 16:45 | disposition home or self-care (01) ==
LOC: M SDC 11:00
PROVIDERS: ATTEND Urology
DX: N20.2 Calculus of kidney with calculus of ureter (principal); I10 Essential (primary) hypertension; E78.5 Hyperlipidemia, unspecified; E11.9 Type 2 diabetes mellitus without complications; K21.9 Gastro-esophageal reflux disease without esophagitis; G43.909 Migraine, unspecified, not intractable, without status migrainosus; G47.33 Obstructive sleep apnea (adult) (pediatric); Z79.899 Other long term (current) drug therapy; Z79.84 Long term (current) use of oral hypoglycemic drugs
CPT/HCPCS: 52356; 74420; 82365; 88300; C1769; C1894; C2617; J0131; J0690; J1100; J2250; J2405; J3010; Q9961

== ENCOUNTER → 2021-03-07 | Outpatient (REF) | payer BC ==
[~2021-03-07] MED LIST changes: -CONRAY-60 60% 50ML VIAL (Q9961) As Ordered ONE; -EMLA CREAM 5GM TUBE (LIDOCAINE/PRILOCAINE) TOP PRN; -LIDOCAINE 1% MDV 20ML VIAL SQ PRN; -LR 1,000 ML IV ONE; +OXYC1TAB23 PO; -ceFAZolin SOD 2 GM in IV 1 EA IV ONE
== END ==
LOC: M SMT 17:26
PROVIDERS: ATTEND Urology
DX: C67.9 Malignant neoplasm of bladder, unspecified (principal)

== ENCOUNTER → 2021-09-05 | Outpatient (CLI) | payer BC ==
[~2021-09-05] MED LIST changes: -D31000TA2 PO; +VITA100093 PO
== END ==
LOC: M RAD 10:05
PROVIDERS: ATTEND Urology
DX: N20.0 Calculus of kidney (principal)

== ENCOUNTER → 2022-01-11 | Outpatient (REF) | payer BC ==
[2022-01-11 13:06] LABS: ALBUMIN 3.6 GM/DL (3.2-5.2); ALT/SGPT 59 U/L (12-78); BILIRUBIN,TOTAL 0.4 MG/DL (0.2-1.0); BLOOD UREA NITROGEN 11 MG/DL (7-18); CALCIUM LEVEL 9.3 MG/DL (8.8-10.2); CARBON DIOXIDE LEVEL 34 MEQ/L (21-32); CHLORIDE LEVEL 100 MEQ/L (98-107); CREATININE FOR GFR 0.82 MG/DL (0.70-1.30); GLOMERULAR FILTRATION RATE > 60.0 (>49); GLUCOSE, FASTING 211 MG/DL (70-100); IRON (FE) 78 UG/DL (65-175); POTASSIUM SERUM 3.9 MEQ/L (3.5-5.1); SODIUM LEVEL 137 MEQ/L (136-145); TOTAL PROTEIN 7.2 GM/DL (6.4-8.2); URIC ACID 6.5 MG/DL (3.5-7.2)
== END ==
LOC: M SFHCCLAY 08:34
PROVIDERS: ATTEND Family Medicine
DX: M79.672 Pain in left foot (principal); E11.40 Type 2 diabetes mellitus with diabetic neuropathy, unspecified; D50.9 Iron deficiency anemia, unspecified

== ENCOUNTER → 2022-03-12 | Outpatient (REF) | payer BC | LOC: M SMT 13:07 | PROVIDERS: ATTEND Urology | DX: C67.9 Malignant neoplasm of bladder, unspecified (principal); R82.89 Other abnormal findings on cytological and histological examination of urine ==

== ENCOUNTER → 2022-07-26 | Outpatient (REF) | payer BC ==
[2022-07-26 12:03] LABS: HEMATOCRIT 42.6 % (42.0-52.0); HEMOGLOBIN 14.1 g/dl (13.5-17.5); MEAN CORPUSCULAR HEMOGLOBIN 31.1 pg (27.0-33.0); MEAN CORPUSCULAR HGB CONC 33.1 g/dl (32.0-36.5); MEAN CORPUSCULAR VOLUME 93.8 fl (80.0-96.0); PLATELET COUNT, AUTOMATED 195 10^3/uL (150-450); RED BLOOD COUNT 4.54 10^6/uL (4.30-6.10)
[2022-07-26 12:24] LABS: HEMOGLOBIN A1c 7.3 % (4.0-6.0)
[2022-07-26 12:28] LABS: ALBUMIN 3.7 G/DL (3.2-5.2); ALKALINE PHOSPHATASE 70 U/L (46-116); ALT/SGPT 63 U/L (7.0-40); AST/SGOT 59 U/L (<34); BILIRUBIN,TOTAL 0.6 MG/DL (0.3-1.2); BLOOD UREA NITROGEN 13 MG/DL (9-23); CALCIUM LEVEL 9.2 MG/DL (8.3-10.6); CARBON DIOXIDE LEVEL 34 MMOL/L (20-31); CHLORIDE LEVEL 100 MMOL/L (98-107); CHOLESTEROL LEVEL 163 MG/DL (<200); CHOLESTEROL RISK RATIO 3.77 (<5); CREATININE FOR GFR 0.74 MG/DL (0.70-1.30); GLOMERULAR FILTRATION RATE > 60.0 (>49); GLUCOSE, FASTING 135 MG/DL (74-106); HDL CHOLESTEROL 43.2 MG/DL (>40); IRON (FE) 72 UG/DL (65-175); LDL CHOLESTEROL 73.2 MG/DL (<100); NON-HDL-C 119.8 MG/DL; POTASSIUM SERUM 4.1 MMOL/L (3.5-5.1); SODIUM LEVEL 140 MMOL/L (136-145); TOTAL PROTEIN 7.2 G/DL (5.7-8.2); TRIGLYCERIDES LEVEL 233 MG/DL (<150)
== END ==
LOC: M SFHCCLAY 09:19
PROVIDERS: ATTEND Family Medicine
DX: E11.40 Type 2 diabetes mellitus with diabetic neuropathy, unspecified (principal); I10 Essential (primary) hypertension; E78.5 Hyperlipidemia, unspecified; D50.9 Iron deficiency anemia, unspecified

== ENCOUNTER 2022-11-22 06:31 | Day surgery (SDC) | payer MEDICARE, BC ==
[~2022-11-22] VITALS: Ht 180.3 cm; Wt 152.7 kg
[~2022-11-22 06:31] MED LIST changes: +CURC500C PO; +GING1CAP PO; +NS 1,000 ML IV ONE; +ZINC50TA17 PO; +[UNRECOGNIZED DRUG - CODE] PO
[2022-11-22] MEDS ORDERED: propofoL 200 MG/20 ML VIAL As Ordered ONE ×2 (08:04→08:13)
[2022-11-22] MEDS ORDERED: LIDOCAINE 2% 100MG/5ML SDV (FOR ANES.) As Ordered ONE (08:04)
[2022-11-22 08:57] VITALS: BP 144/71; TEMP 97.2; O2SAT 96
== END 2022-11-22 09:01 | disposition home or self-care (01) ==
LOC: M OPP 06:31
PROVIDERS: ATTEND Surgery
DX: Z12.11 Encounter for screening for malignant neoplasm of colon (principal); Z80.0 Family history of malignant neoplasm of digestive organs; D12.6 Benign neoplasm of colon, unspecified; K57.30 Diverticulosis of large intestine without perforation or abscess without bleeding; Z87.891 Personal history of nicotine dependence; Z79.02 Long term (current) use of antithrombotics/antiplatelets; Z79.84 Long term (current) use of oral hypoglycemic drugs; Z79.899 Other long term (current) drug therapy

== ENCOUNTER → 2023-01-25 | Outpatient (REF) | payer MEDICARE, BC ==
[~2023-01-25] MED LIST changes: -NS 1,000 ML IV ONE
[2023-01-25 17:50] LABS: HEMATOCRIT 41.7 % (42.0-52.0); HEMOGLOBIN 14.1 g/dl (13.5-17.5); MEAN CORPUSCULAR HGB CONC 33.8 g/dl (32.0-36.5); MEAN CORPUSCULAR VOLUME 91.6 fl (80.0-96.0); PLATELET COUNT, AUTOMATED 181 10^3/uL (150-450); RED BLOOD COUNT 4.55 10^6/uL (4.30-6.10); WHITE BLOOD COUNT 6.3 10^3/uL (4.0-10.0)
[2023-01-25 18:14] LABS: ALBUMIN 3.5 G/DL (3.2-5.2); ALKALINE PHOSPHATASE 67 U/L (46-116); ALT/SGPT 63 U/L (7.0-40); AST/SGOT 52 U/L (<34); BILIRUBIN,TOTAL 0.4 MG/DL (0.3-1.2); BLOOD UREA NITROGEN 10 MG/DL (9-23); CALCIUM LEVEL 9.2 MG/DL (8.3-10.6); CARBON DIOXIDE LEVEL 32 MMOL/L (20-31); CHLORIDE LEVEL 99 MMOL/L (98-107); CREATININE FOR GFR 0.64 MG/DL (0.70-1.30); GLOMERULAR FILTRATION RATE > 60.0 (>49); GLUCOSE, FASTING 180 MG/DL (74-106); IRON (FE) 72 UG/DL (65-175); POTASSIUM SERUM 4.3 MMOL/L (3.5-5.1); SODIUM LEVEL 139 MMOL/L (136-145); TOTAL PROTEIN 6.8 G/DL (5.7-8.2)
[2023-01-25 18:46] LABS: HEMOGLOBIN A1c 7.1 % (4.0-6.0)
== END ==
LOC: M SFHCCLAY 09:56
PROVIDERS: ATTEND Family Medicine
DX: E11.40 Type 2 diabetes mellitus with diabetic neuropathy, unspecified (principal); D50.9 Iron deficiency anemia, unspecified

== ENCOUNTER → 2023-07-26 | Outpatient (REF) | payer MEDICARE, BC ==
[2023-07-26 17:57] LABS: HEMATOCRIT 41.2 % (42.0-52.0); HEMOGLOBIN 13.7 g/dl (13.5-17.5); MEAN CORPUSCULAR HEMOGLOBIN 31.1 pg (27.0-33.0); MEAN CORPUSCULAR HGB CONC 33.3 g/dl (32.0-36.5); MEAN CORPUSCULAR VOLUME 93.4 fl (80.0-96.0); PLATELET COUNT, AUTOMATED 184 10^3/uL (150-450); RED BLOOD COUNT 4.41 10^6/uL (4.30-6.10); WHITE BLOOD COUNT 6.6 10^3/uL (4.0-10.0)
[2023-07-26 18:05] LABS: HEMOGLOBIN A1c 6.6 % (4.0-6.0)
[2023-07-26 18:28] LABS: IRON (FE) 62 UG/DL (65-175)
[2023-07-26 18:29] LABS: ALBUMIN 3.7 G/DL (3.2-5.2); ALKALINE PHOSPHATASE 72 U/L (46-116); ALT/SGPT 44 U/L (7.0-40); AST/SGOT 32 U/L (<34); BILIRUBIN,TOTAL 0.4 MG/DL (0.3-1.2); BLOOD UREA NITROGEN 14 MG/DL (9-23); CALCIUM LEVEL 9.4 MG/DL (8.3-10.6); CARBON DIOXIDE LEVEL 32 MMOL/L (20-31); CHLORIDE LEVEL 100 MMOL/L (98-107); CHOLESTEROL LEVEL 152 MG/DL (<200); CHOLESTEROL RISK RATIO 4.39 (<5); CREATININE FOR GFR 0.71 MG/DL (0.70-1.30); GLOMERULAR FILTRATION RATE > 60.0 (>49); GLUCOSE, FASTING 143 MG/DL (74-106); HDL CHOLESTEROL 34.6 MG/DL (>40); NON-HDL-C 117.4 MG/DL; POTASSIUM SERUM 4.3 MMOL/L (3.5-5.1); SODIUM LEVEL 139 MMOL/L (136-145); TRIGLYCERIDES LEVEL 237 MG/DL (<150)
== END ==
LOC: M SFHCCLAY 10:25
PROVIDERS: ATTEND Family Medicine
DX: E11.40 Type 2 diabetes mellitus with diabetic neuropathy, unspecified (principal); D50.9 Iron deficiency anemia, unspecified; E78.5 Hyperlipidemia, unspecified

== ENCOUNTER → 2023-12-31 | Outpatient (REF) | payer MEDICARE, BC ==
[~2023-12-31] MED LIST changes: -GARL500C2 PO; +GARL500C6 PO
[2023-12-31 17:15] LABS: HEMATOCRIT 41.6 % (42.0-52.0); HEMOGLOBIN 13.9 g/dl (13.5-17.5); MEAN CORPUSCULAR HEMOGLOBIN 31.1 pg (27.0-33.0); MEAN CORPUSCULAR HGB CONC 33.4 g/dl (32.0-36.5); MEAN CORPUSCULAR VOLUME 93.1 fl (80.0-96.0); PLATELET COUNT, AUTOMATED 203 10^3/uL (150-450); RED BLOOD COUNT 4.47 10^6/uL (4.30-6.10); WHITE BLOOD COUNT 6.5 10^3/uL (4.0-10.0)
[2023-12-31 17:42] LABS: HEMOGLOBIN A1c 7.2 % (4.0-6.0)
[2023-12-31 17:44] LABS: IRON (FE) 95 UG/DL (65-175)
[2023-12-31 17:45] LABS: ALBUMIN 3.7 G/DL (3.2-5.2); ALKALINE PHOSPHATASE 73 U/L (46-116); ALT/SGPT 44 U/L (7.0-40); AST/SGOT 24 U/L (<34); BILIRUBIN,TOTAL 0.4 MG/DL (0.3-1.2); BLOOD UREA NITROGEN 13 MG/DL (9-23); CALCIUM LEVEL 9.4 MG/DL (8.3-10.6); CARBON DIOXIDE LEVEL 32 MMOL/L (20-31); CHLORIDE LEVEL 100 MMOL/L (98-107); CREATININE FOR GFR 0.67 MG/DL (0.70-1.30); GLOMERULAR FILTRATION RATE > 60.0 (>49); GLUCOSE, FASTING 171 MG/DL (74-106); POTASSIUM SERUM 4.7 MMOL/L (3.5-5.1); SODIUM LEVEL 136 MMOL/L (136-145); TOTAL PROTEIN 7.2 G/DL (5.7-8.2)
== END ==
LOC: M SFHCCLAY 09:16
PROVIDERS: ATTEND Family Medicine
DX: E11.40 Type 2 diabetes mellitus with diabetic neuropathy, unspecified (principal); D50.9 Iron deficiency anemia, unspecified

== ENCOUNTER → 2023-12-31 | Outpatient (CLI) | payer MEDICARE, BC | LOC: M CLY 09:40 | PROVIDERS: ATTEND Family Medicine | DX: M79.672 Pain in left foot (principal) ==

== ENCOUNTER → 2024-03-12 | Outpatient (CLI) | payer MEDICARE, BC | LOC: M CLY 09:25 | PROVIDERS: ATTEND Urology | DX: N20.0 Calculus of kidney (principal) ==

== ENCOUNTER → 2024-03-16 | Outpatient (REF) | payer MEDICARE, BC | LOC: M SMT 12:44 | PROVIDERS: ATTEND Urology | DX: C67.9 Malignant neoplasm of bladder, unspecified (principal) ==

== ENCOUNTER → 2024-07-27 | Outpatient (REF) | payer MEDICARE, BC ==
[~2024-07-27] MED LIST changes: -FLOM0.4C39 PO; +TAMS-18 PO
[2024-07-27 13:13] LABS: HEMATOCRIT 42.7 % (42.0-52.0); HEMOGLOBIN 14.3 g/dl (13.5-17.5); MEAN CORPUSCULAR HEMOGLOBIN 30.6 pg (27.0-33.0); MEAN CORPUSCULAR HGB CONC 33.5 g/dl (32.0-36.5); MEAN CORPUSCULAR VOLUME 91.4 fl (80.0-96.0); PLATELET COUNT, AUTOMATED 189 10^3/uL (150-450); RED BLOOD COUNT 4.67 10^6/uL (4.30-6.10); WHITE BLOOD COUNT 6.7 10^3/uL (4.0-10.0)
[2024-07-27 13:21] LABS: IRON (FE) 80 UG/DL (65-175)
[2024-07-27 13:22] LABS: ALBUMIN 3.6 G/DL (3.2-5.2); ALKALINE PHOSPHATASE 72 U/L (40-129); ALT/SGPT 81 U/L (7.0-40); AST/SGOT 60 U/L (<34); BILIRUBIN,TOTAL 0.4 MG/DL (0.3-1.2); BLOOD UREA NITROGEN 11 MG/DL (9-23); CALCIUM LEVEL 9.2 MG/DL (8.3-10.6); CARBON DIOXIDE LEVEL 31 MMOL/L (20-31); CHLORIDE LEVEL 97 MMOL/L (98-107); CHOLESTEROL LEVEL 176 MG/DL (<200); CHOLESTEROL RISK RATIO 4.16 (<5); CREATININE FOR GFR 0.64 MG/DL (0.70-1.30); GLOMERULAR FILTRATION RATE > 90.0 (>49); GLUCOSE, FASTING 310 MG/DL (74-106); HDL CHOLESTEROL 42.3 MG/DL (>40); LDL CHOLESTEROL 92.9 MG/DL (<100); NON-HDL-C 133.7 MG/DL; POTASSIUM SERUM 3.8 MMOL/L (3.5-5.1); SODIUM LEVEL 136 MMOL/L (136-145); TOTAL PROTEIN 6.9 G/DL (5.7-8.2); TRIGLYCERIDES LEVEL 204 MG/DL (<150)
[2024-07-27 13:31] LABS: HEMOGLOBIN A1c 8.6 % (4.0-6.0)
== END ==
LOC: M SFHCCLAY 09:00
PROVIDERS: ATTEND Family Medicine
DX: D50.9 Iron deficiency anemia, unspecified (principal); E11.40 Type 2 diabetes mellitus with diabetic neuropathy, unspecified; E78.5 Hyperlipidemia, unspecified

== ENCOUNTER → 2025-01-25 | Outpatient (REF) | payer MEDICARE, BC ==
[~2025-01-25] MED LIST changes: -GING1CAP PO; +GING550C4 PO
[2025-01-25 18:25] LABS: ESTIMATED AVERAGE GLUCOSE 126.0 MG/DL (60-110)
[2025-01-25 18:32] LABS: ALT/SGPT 34 U/L (7.0-40); AST/SGOT 26 U/L (<34); CALCIUM LEVEL 9.4 MG/DL (8.3-10.6); CARBON DIOXIDE LEVEL 32 MMOL/L (20-31); CHLORIDE LEVEL 98 MMOL/L (98-107); CREATININE FOR GFR 0.89 MG/DL (0.70-1.30); GLOMERULAR FILTRATION RATE > 90.0 (>49); POTASSIUM SERUM 4.8 MMOL/L (3.5-5.1); SODIUM LEVEL 140 MMOL/L (136-145)
== END ==
LOC: M SFHCCLAY 09:05
PROVIDERS: ATTEND Family Medicine
DX: E11.40 Type 2 diabetes mellitus with diabetic neuropathy, unspecified (principal)

== ENCOUNTER → 2025-03-15 | Outpatient (REF) | payer MEDICARE, BC | LOC: M SMT 13:02 | PROVIDERS: ATTEND Urology | DX: C67.9 Malignant neoplasm of bladder, unspecified (principal) ==